=== PATIENT | male | born 1950 ===

== ENCOUNTER 2020-12-19 10:38 | Outpatient (REF) | payer BC, SELFPAY ==
[2020-12-19 14:38] LABS: MANUAL DIFF FLAG NO
[2020-12-19 14:46] LABS: Basophils Percent Auto 0.6 % (0-2); Eosinophils Absolute Auto 0.1 X10*3/uL (0.0-0.4); Eosinophils Percent Auto 2.6 % (0-4); Hematocrit 38.6 % (42-52); Hemoglobin 12.9 g/dl (14.0-18.0); Imm Gran Abs Auto 0.02 X10*3/uL (0.00-0.03); Imm Gran Pct Auto 0.4 % (0.0-0.4); Lymphocytes Absolute Auto 1.8 X10*3/uL (1.2-4.9); Lymphocytes Percent Auto 34.8 % (20-40); Mean Corpuscular HGB Conc 33.4 g/dl (31.0-36.0); Mean Corpuscular Hemoglobin 32.4 pg (27.0-33.0); Mean Platelet Volume 10.3 fL (9.4-12.4); Monocytes Absolute Auto 0.6 X10*3/uL (0.1-1.2); Monocytes Percent Auto 11.7 % (2-11); Neutrophils Absolute Auto 2.6 X10*3/uL (2.0-8.3); Neutrophils Percent Auto 49.9 % (45-73); Platelet Count 257 X10*3/uL (160-400); Red Blood Count 3.98 X10*6/uL (4.60-5.80); Red Cell Distribution Width 12.8 % (11.0-16.0); White Blood Count 5.3 X10*3/uL (4.8-10.8)
[2020-12-19 15:10] LABS: Alanine Aminotransferase 29 U/L (0-40); Albumin Level 4.5 g/dL (3.5-5.0); Alkaline Phosphatase 65 U/L (39-117); Anion Gap 12 (12-20); Aspartate Amino Transferase 29 U/L (5-37); Bilirubin Total 0.5 mg/dL (0.0-1.0); Blood Urea Nitrogen 22 mg/dL (9-16); Calcium 9.3 mg/dL (8.4-10.2); Carbon Dioxide 29 mmol/L (22-29); Chloride 106 mmol/L (96-108); Cholesterol 229 mg/dL; Estimated Glomerular Filt Rate > 60; Glucose Fasting 99 mg/dL (60-99); HDL Cholesterol 47 mg/dL; LDL Cholesterol Calculated 162 mg/dl; Potassium 4.6 mmol/L (3.3-5.1); Sodium 142 mmol/L (135-145); Triglycerides 104 mg/dL
[2020-12-19 15:31] LABS: Prostate Specific Antigen Scr 0.73 ng/mL (<0.05-4.0); Thyroid Stimulating Hormone 1.32 uIU/mL (0.32-4.0)
== END 2020-12-19 10:39 | disposition home or self-care (01) ==
LOC: HO.10HDL 10:38
PROVIDERS: Visit Provider Internal Medicine
DX: Z00.00 Encounter for general adult medical examination without abnormal findings (principal); Z12.5 Encounter for screening for malignant neoplasm of prostate; E11.9 Type 2 diabetes mellitus without complications; R35.1 Nocturia; E03.9 Hypothyroidism, unspecified
CPT/HCPCS: 36415; 80053; 80061; 84153; 84443; 85025

== ENCOUNTER 2021-12-26 10:48 | Outpatient (REF) | payer MEDICARE, SELFPAY ==
[2021-12-26 10:58] LABS: MANUAL DIFF FLAG NO
[2021-12-26 11:31] LABS: Basophils Percent Auto 0.5 % (0-2); Eosinophils Absolute Auto 0.1 X10*3/uL (0.0-0.4); Eosinophils Percent Auto 1.9 % (0-4); Hematocrit 41.9 % (42.0-52.0); Hemoglobin 13.9 g/dl (14.0-18.0); Imm Gran Abs Auto 0.02 X10*3/uL (0.00-0.03); Imm Gran Pct Auto 0.3 % (0.0-0.4); Mean Corpuscular HGB Conc 33.2 g/dl (31.0-36.0); Mean Corpuscular Hemoglobin 32.2 pg (27.0-33.0); Mean Platelet Volume 9.4 fL (9.4-12.4); Monocytes Absolute Auto 0.5 X10*3/uL (0.1-1.2); Monocytes Percent Auto 8.6 % (2-11); Neutrophils Absolute Auto 3.2 x10*3/uL (2.0-8.3); Neutrophils Percent Auto 54.7 % (45-73); Platelet Count 300 X10*3/uL (160-400); Red Blood Count 4.32 X10*6/uL (4.60-5.80); Red Cell Distribution Width 13.2 % (11.0-16.0); White Blood Count 5.8 X10*3/uL (4.8-10.8)
[2021-12-26 12:21] LABS: Alanine Aminotransferase 24 U/L (0-40); Albumin Level 4.5 g/dL (3.5-5.0); Alkaline Phosphatase 70 U/L (39-117); Anion Gap 12 (12-20); Aspartate Amino Transferase 24 U/L (5-37); Bilirubin Total 0.4 mg/dL (0.0-1.0); Blood Urea Nitrogen 20 mg/dL (9-16); Calcium 10.1 mg/dL (8.4-10.2); Carbon Dioxide 30 mmol/L (22-29); Chloride 107 mmol/L (96-108); Cholesterol 237 mg/dL; Estimated Glomerular Filt Rate > 60; Glucose Fasting 113 mg/dL (60-99); HDL Cholesterol 56 mg/dL; LDL Cholesterol Calculated 167 mg/dl; Potassium 5.2 mmol/L (3.3-5.1); Sodium 144 mmol/L (135-145); Total Protein 7.2 g/dL (6.5-8.0); Triglycerides 72 mg/dL
[2021-12-26 12:24] LABS: Thyroid Stimulating Hormone 0.92 uIU/mL (0.32-4.0)
== END 2021-12-26 10:49 | disposition home or self-care (01) ==
LOC: HO.LAB 10:48
PROVIDERS: PCP Internal Medicine; Visit Provider Internal Medicine
DX: Z00.00 Encounter for general adult medical examination without abnormal findings (principal); Z13.0 Encounter for screening for diseases of the blood and blood-forming organs and certain disorders involving the immune mechanism
CPT/HCPCS: 36415; 80053; 80061; 84443; 85025

== ENCOUNTER 2021-12-28 07:38 | Outpatient (REF) | payer MEDICARE, SELFPAY ==
--- NOTE | ~2021-12-28 | XR_ITS ---
EXAMINATION: XR KNEE, RIGHT XR KNEE BILATERAL STANDING CLINICAL INFORMATION: Right knee pain. COMPARISON: None TECHNIQUE: AP standing view of bilateral knees. Lateral and sunrise views of the right knee. FINDINGS: Right knee: Alignment is anatomic. Mild patellofemoral cartilage space loss with retropatellar osteophytes. Trace joint effusion. Quadriceps tendon enthesophyte. Left knee: Normal alignment and preserved joint spaces in the frontal projection. XR/XR knee RT 2V IMPRESSION: Mild patellofemoral osteoarthritis of the right knee.
--- NOTE | ~2021-12-28 | XR_ITS ---
EXAMINATION: XR KNEE, RIGHT XR KNEE BILATERAL STANDING CLINICAL INFORMATION: Right knee pain. COMPARISON: None TECHNIQUE: AP standing view of bilateral knees. Lateral and sunrise views of the right knee. FINDINGS: Right knee: Alignment is anatomic. Mild patellofemoral cartilage space loss with retropatellar osteophytes. Trace joint effusion. Quadriceps tendon enthesophyte. Left knee: Normal alignment and preserved joint spaces in the frontal projection. XR/XR knee standing BI IMPRESSION: Mild patellofemoral osteoarthritis of the right knee.
== END 2021-12-28 07:39 | disposition home or self-care (01) ==
LOC: HO.HOSX 07:38
PROVIDERS: Visit Provider Physician Assistant
DX: M22.41 Chondromalacia patellae, right knee (principal)
CPT/HCPCS: 73560; 73565; 99202

== ENCOUNTER 2022-12-30 10:04 | Outpatient (REF) | payer MEDICARE, SELFPAY ==
--- NOTE | ~2022-12-30 | XR_ITS ---
EXAMINATION: XR KNEE, RIGHT CLINICAL INFORMATION: Pain. COMPARISON: Radiographs dated 12/28/2021. TECHNIQUE: AP and lateral views of the right knee. FINDINGS: Bony alignment and mineralization are normal. The lateral and medial joint space compartments are well-maintained. There is moderate narrowing of the patellofemoral compartment, with small upper and lower articular surface peripheral osteophytes. An enthesophyte arises from the upper pole of the patella at the quadriceps tendon insertion. No fracture, dislocation or joint effusion is seen. There is no foreign body. XR/XR knee RT 2V IMPRESSION: 1. There is moderate osteoarthritic change of the right patellofemoral compartment. 2. No right knee fracture, dislocation or joint effusion is seen.
[2022-12-30 10:16] LABS: MANUAL DIFF FLAG NO
[2022-12-30 11:01] LABS: Basophils Percent Auto 0.5 % (0-2); Eosinophils Absolute Auto 0.1 X10*3/uL (0.0-0.4); Eosinophils Percent Auto 1.9 % (0-4); Hemoglobin 14.5 g/dl (14.0-18.0); Imm Gran Abs Auto 0.01 X10*3/uL (0.00-0.03); Imm Gran Pct Auto 0.2 % (0.0-0.4); Lymphocytes Absolute Auto 1.7 X10*3/uL (1.2-4.9); Lymphocytes Percent Auto 39.4 % (20-40); Mean Corpuscular HGB Conc 33.7 g/dl (31.0-36.0); Mean Corpuscular Hemoglobin 32.4 pg (27.0-33.0); Mean Corpuscular Volume 96.2 fL (80.0-98.0); Mean Platelet Volume 9.7 fL (9.4-12.4); Monocytes Absolute Auto 0.4 X10*3/uL (0.1-1.2); Monocytes Percent Auto 9.7 % (2-11); Neutrophils Absolute Auto 2.1 x10*3/uL (2.0-8.3); Neutrophils Percent Auto 48.3 % (45-73); Platelet Count 232 X10*3/uL (160-400); Red Blood Count 4.47 X10*6/uL (4.60-5.80); Red Cell Distribution Width 12.7 % (11.0-16.0); White Blood Count 4.3 X10*3/uL (4.8-10.8)
[2022-12-30 11:36] LABS: Alanine Aminotransferase 31 U/L (0-40); Albumin Level 4.6 g/dL (3.5-5.0); Alkaline Phosphatase 75 U/L (39-117); Anion Gap 12 (12-20); Aspartate Amino Transferase 28 U/L (5-37); Bilirubin Total 0.5 mg/dL (0.0-1.0); Blood Urea Nitrogen 23 mg/dL (9-16); Calcium 9.2 mg/dL (8.4-10.2); Carbon Dioxide 28 mmol/L (22-29); Chloride 108 mmol/L (96-108); Cholesterol 241 mg/dL; Estimated Glomerular Filt Rate > 60; Glucose Fasting 93 mg/dL (60-99); HDL Cholesterol 43 mg/dL; LDL Cholesterol Calculated 180 mg/dl; Potassium 4.5 mmol/L (3.3-5.1); Sodium 143 mmol/L (135-145); Total Protein 7.2 g/dL (6.5-8.0); Triglycerides 92 mg/dL
== END 2022-12-30 10:05 | disposition home or self-care (01) ==
LOC: HO.XRAY 10:04
PROVIDERS: PCP Internal Medicine; Visit Provider Internal Medicine
DX: N28.9 Disorder of kidney and ureter, unspecified (principal); D64.9 Anemia, unspecified; E78.5 Hyperlipidemia, unspecified; M25.561 Pain in right knee
CPT/HCPCS: 36415; 73560; 80053; 80061; 85025

== ENCOUNTER → 2023-01-03 15:28 | Outpatient (BNVA) | payer MEDICARE, SELFPAY | PROVIDERS: PCP Internal Medicine; Visit Provider Urology | DX: N52.9 Male erectile dysfunction, unspecified (principal) | CPT/HCPCS: 99202 ==

== ENCOUNTER → 2023-01-29 12:36 | Outpatient (BNVA) | payer MEDICARE, SELFPAY | PROVIDERS: PCP Internal Medicine; Visit Provider Physician Assistant | DX: M22.41 Chondromalacia patellae, right knee (principal) | CPT/HCPCS: 99212 ==

== ENCOUNTER → 2023-04-10 10:08 | Outpatient (BNVA) | payer MEDICARE, SELFPAY | PROVIDERS: PCP Internal Medicine; Visit Provider Urology | DX: N52.9 Male erectile dysfunction, unspecified (principal); R35.1 Nocturia; R39.12 Poor urinary stream | CPT/HCPCS: Q3014 ==

== ENCOUNTER 2023-07-09 10:46 | Outpatient (AMB) | payer MEDICARE, SELFPAY ==
--- NOTE | 2023-07-09 10:49 | A.OFFVIS_ITS ---
Intake Intake Visit Reasons: 3m follow up Intake Note: Patient is present for Follow Up Medication Urology Med: Last visit patient is no longer taking sildenafil. Currently on Tadalafil 5mg for BPH and sometimes 10mg(2 tabs) for erectile Dysfunction Antibiotic Allergy: None Blood Thinner: None Pharmacy: [facility] Medication Allergies No Known Allergies Allergy (Verified 07/09/23 10:54) Medication List - Last Reconciled 07/09/23 by Matthew Giron MD baclofen 20 mg PO BEDTIME clonazepam 1 mg PO BEDTIME PRN diclofenac-misoprostol 75-200 mg-mcg 1 tab PO BID gabapentin 600 mg PO DAILY latanoprost 0.005% 0 drps ophthalmic (eye) tadalafil 5 mg PO DAILY 90 days tadalafil 10 mg PO ONCE PRN 30 days tramadol 50 mg PO BID PRN 30 days HPI HPI Comments History of Present Illness Details Adria is a pleasant male. He is a patient Dr. Taylor. He is seen for the following urologic conditions - erectile dysfunction - lower urinary tract symptoms Six month follow-up Using 5 mg daily tadalafil 10 mg on demand Good response Continued improvement in urination May need alpha-adam in addition 6 month follow-up PSA Erectile dysfunction Current therapy 5 mg daily with 10 mg on demand tadalafil Initial evaluation - Progressive - Able to obtain but cannot maintain erection Concurrent diagnosis includes nocturia Medications include gabapentin, clonazepam Prior reasonable response to on demand sildenafil PFSH Medical History Spinal stenosis Surgical History History of colonoscopy H/O spinal fusion History of inguinal hernia repair Family History Father Tubular adenoma Mother Alzheimers disease Maternal Aunt Breast cancer Maternal Uncle Lung cancer Maternal Grandfather Lung cancer Brother No problems noted. Brother No problems noted. Sister No problems noted. Sister No problems noted. Daughter No problems noted. Daughter No problems noted. Daughter No problems noted. Social History Housing: Condominium Alcohol intake: current Alcohol intake frequency: a few times a week Patient Tobacco Use Status: Never used Tobacco e-Cigarette/Vaping Use: Never Used Second Hand Smoke Exposure: No service: No Current occupational status: employed Cognitive needs: No Hearing needs: No Vision needs: No Review of Systems Const Denies chills and Denies fever(s) Card Reports no additional complaints and Denies syncope Resp Denies cough GI Denies abdominal pain and Denies heartburn Reports as per HPI and Denies change in libido Neuro Denies syncope Psych Denies change in libido Endo Denies change in libido Physical Exam Const General: cooperative, healthy appearing, comfortable and no acute distress Orientation/consciousness: patient oriented x3 HEENT Face and sinus: Yes normal facial exam Mouth: moist mucous membranes Neck Neck: Yes normal visual inspection, Yes full ROM and Yes trachea midline Chest Chest palpation & inspection: normal inspection of the chest Resp Effort & Inspection: normal respiratory effort, able to speak in complete sentences and no respiratory distress GI Inspection: Yes normal to inspection Back/Spine/Pelvis Cervical Spine: normal cervical lordosis Thoracic/Lumbar Spine: thoracic and lumbar spine normal to inspection Skin General skin exam: no rashes or lesions noted Neuro General: patient oriented x3, gait normal, tone normal and moves all extremities Extrem General: Yes normal to inspection and Yes capillary refill normal Assessment & Plan Assessment & Plan (1) Weak urinary stream: Code(s): R39.12 - Poor urinary stream (2) Erectile dysfunction: Code(s): N52.9 - Male erectile dysfunction, unspecified (3) Nocturia more than twice per night: Code(s): R35.1 - Nocturia Plan Six month follow-up Orders: Orders Prostate Specific Antigen 6 Months R39.12 - Poor urinary stream Patient Instructions: Imaging studies, laboratory and physical exam results were discussed and reviewed in detail. No major barriers to patient understanding were identified. An opportunity to ask questions regarding the treatment plan was provided. All questions were answered. The patient expressed understanding and agreement with the above treatment plan. The patient is aware they should contact our office by phone for worsening of their current condition or the appearance of new urologic symptoms. Compliance is encouraged with any medications and followup testing that is ordered. It is a privilege to participate in the urologic care of your patient. If you have any questions or concerns regarding treatment for the above conditions, or other urologic issues, please do not hesitate to contact me. The office telephone contact is [phone]. This note is constructed using voice recognition software. While every effort has been made to ensure accuracy senior lead java developer errors may have been included. Yours sincerely, Dr Matthew Giron MD, [facility] - Urology Providers of Expert, Compassionate Care for the Genitourinary System Coding Level of Care Code Est Pt Level 3 (20620) Diagnoses Weak urinary stream R39.12 Erectile dysfunction N52.9 Nocturia more than twice per night R35.1
== END 2023-07-09 11:17 | disposition home or self-care (01) ==
PROVIDERS: PCP Internal Medicine; Visit Provider Urology
DX: R39.12 Poor urinary stream (principal); N52.9 Male erectile dysfunction, unspecified; R35.1 Nocturia
CPT/HCPCS: 99213

== ENCOUNTER → 2023-07-09 10:46 | Outpatient (BNVA) | payer MEDICARE, SELFPAY | PROVIDERS: PCP Internal Medicine; Visit Provider Urology | DX: R39.12 Poor urinary stream (principal); R35.1 Nocturia; N52.9 Male erectile dysfunction, unspecified | CPT/HCPCS: 99212 ==

== ENCOUNTER 2024-01-02 08:50 | Outpatient (AMB) | payer MEDICARE, SELFPAY ==
[2024-01-02 08:51] VITALS: BP 120/78; PULSE 50; O2SAT 100; BMI 25.4
--- NOTE | 2024-01-02 08:51 | A.OFFPC_ITS ---
Vital Signs 01/02/24 08:51 Height 5 ft 9 in Weight 172 lb BMI 25.4 BP 120/78 Blood Pressure Location Lt brachial Position Sitting Pulse 50 Pulse Source Pulse Oximeter Pulse Oximetry (%) 100 Oxygen Delivery Method Room Air Intake Visit Reasons: Annual exam Tempering Kiln Tender Required: No Senior Biostatistician/Group Leader: Not Required per policy Accompanied by: Self / Same As Patient Allergies No Known Allergies Allergy (Verified 01/02/24 08:52) Medication List - Last Reconciled 01/02/24 by Leo Wiley MD baclofen 20 mg PO BEDTIME clonazepam 1 mg PO BEDTIME PRN diclofenac-misoprostol 75-200 mg-mcg 1 tab PO BID gabapentin 600 mg PO DAILY latanoprost 0.005% 0 drps ophthalmic (eye) tadalafil 5 mg PO DAILY 90 days tadalafil 10 mg PO ONCE PRN 30 days tramadol 50 mg PO BID PRN 30 days Tobacco use date assessed: 01/02/24 Fall risk assessment: No Falls in past year Last assessed Fall Risk: 01/02/24 Dental Screening Dental Screen Date: 01/02/24 Did you have a dental visit in the last 12 months?: Yes Did you have a dental problem in the last 6 months where you did not have access to dental care?: No Was dental information given to patient?: Patient has dentist HPI Annual exam HPI Details chronic back pain; due for colonoscopy [facility] Medical History Spinal stenosis Surgical History History of colonoscopy H/O spinal fusion History of inguinal hernia repair Family History (Updated 01/02/24 @ 08:53 by MADISON Dominguez) Father Tubular adenoma Mother Alzheimers disease Maternal Aunt Breast cancer Maternal Uncle Lung cancer Maternal Grandfather Lung cancer Brother No problems noted. Brother No problems noted. Sister No problems noted. Sister No problems noted. Daughter No problems noted. Daughter No problems noted. Daughter No problems noted. Social History Housing: Condominium Alcohol intake: current Alcohol intake frequency: a few times a week Patient Tobacco Use Status: Never used Tobacco e-Cigarette/Vaping Use: Never Used Second Hand Smoke Exposure: No service: No Current occupational status: employed Cognitive needs: No Hearing needs: No Vision needs: Yes (glasses) Questionnaire PHQ-9 Over the last 2 weeks, how often have you been bothered by any of the following problems? 1. Little interest or pleasure in doing things: not at all 2. Feeling down, depressed, or hopeless: not at all 3. Trouble falling or staying asleep, or sleeping too much: not at all 4. Feeling tired or having little energy: not at all 5. Poor appetite or overeating: not at all 6. Feeling bad about yourself - or that you are a failure or have let yourself or your family down: not at all 7. Trouble concentrating on things, such as reading the newspaper or watching television: not at all 8. Moving or speaking so slowly that other people could have noticed. Or the opposite - being so fidgety or restless that you have been moving around a lot more than usual: not at all 9. Thoughts that you would be better off or of hurting yourself in some way: not at all Total score: 0 Depression Screening Interpretation: Negative Depression Screening Done: Yes 58608 - PHQ-9 Billing: Yes Source: Developed by Drs. Alvaro Gaitan, Shannan Jung, Edward Jett and colleagues, with an educational dania from [employer]. Thrive Questionnaire Date Thrive assessed: 01/02/24 I am a: Patient What is your living situation today?: I have a steady place to live Within the past 12 months, did the food you bought not last and you didn't have the money to get more?: Never true Within the past 12 months, did you worry whether your food would run out before you got money to buy more?: Never true Do you have trouble paying for medicines?: No Do you have trouble getting transportation to medical appointments?: No Do you have trouble paying your heating and electricity bill?: No Do you have trouble taking care of your child, family member or friend?: No Do you have trouble with day-to-day activities such as bathing, preparing meals, shopping, managing finances, etc.?: No Are you currently unemployed and looking for a job?: No Are you interested in more education?: No Please select the resources that you would like help with: None THRIVE Score: 0 AUDIT C Alcohol Use Questionnaire (AUDIT-C) 1. How often do you have a drink containing alcohol?: Monthly or less 2. How many drinks containing alcohol do you have on a typical day when you are drinking?: 1 or 2 3. How often do you have six or more drinks on one occasion?: Never Total Score: 1 Score Reviewed/Action Taken: Yes ANASTACIO-7 AMB Questionnaire ANASTACIO-7 Date ANASTACIO - 7 assessed: 01/02/24 Feeling nervous, anxious, or on edge: 0 = Not at all Not being able to stop or control worryin = Not at all Worrying too much about different things: 0 = Not at all Trouble relaxin = Not at all Being so restless that it is hard to sit still: 0 = Not at all Becoming easily annoyed or irritable: 0 = Not at all Feeling afraid as if something awful might happen: 0 = Not at all Total ANASTACIO-7 score (0-4 normal; 5-9 mild; 10-14 moderate; 15-21 severe): 0 Source: Developed by Drs. Alvaro Gaitan, Shannan Jung, Edward Jett and colleagues, with an educational dania from [employer]. ANASTACIO-7 Assessment Billing ANASTACIO-7 Assessment Tool: ANASTACIO-7 Assessment 09480 Review of Systems Const Denies chills, Denies fatigue, Denies headache(s) and Denies weight loss Eyes Denies change in vision, Denies diplopia and Denies eye pain ENT Denies vertigo, Denies dizziness, Denies headache(s) and Denies nasal discharge Card Denies chest pain, Denies rapid heart rate and Denies dyspnea on exertion Resp Denies chest congestion, Denies cough, Denies pain with cough and Denies dyspnea on exertion GI Denies abdominal pain, Denies hematochezia and Denies change in bowel habits Musc Denies myalgias, Denies arthralgias and Denies joint swelling Skin/Breast Denies lesions and Denies unusual bruising Neuro Denies vertigo, Denies dizziness, Denies headache(s) and Denies focal weakness Endo Denies fatigue Physical exam (Primary Care) Vital Signs: Last Vital Signs Pulse 50 01/02/24 08:51 BP 120/78 01/02/24 08:51 Pulse Ox 100 01/02/24 08:51 Oxygen Delivery Method Room Air 01/02/24 08:51 BMI result Body Mass Index 25.4 Tobacco/Smoking Status: Tobacco use Status Tobacco use date assessed 01/02/24 01/02/24 08:53 Patient Tobacco Use Status Never used Tobacco 01/02/24 08:53 e-Cigarette/Vaping Use Never Used 01/02/24 08:53 PHQ-9: PHQ-9 Score PHQ-9: Total score 0 01/02/24 08:53 Depression Screening Interpretation: Negative Thrive Assessment: Date of Thrive Assessment Date Thrive assessed 01/02/24 01/02/24 08:53 Const General: cooperative, healthy appearing and no acute distress Orientation/consciousness: oriented to person, oriented to place and oriented to time HENMT Head: Yes normal to inspection, Yes normocephalic and Yes atraumatic Mouth: Normal oral and palatal mucosa present and tongue normal Throat: Yes posterior oropharynx normal and Yes uvula midline Eyes General: appearance normal, both eyes and all related structures Neck Neck: Yes normal visual inspection, Yes full ROM and Yes no lymphadenopathy Thyroid: Thyroid normal Carotids: normal carotid upstroke Chest Chest palpation & inspection: normal inspection of the chest Resp Effort & Inspection: normal respiratory effort and able to speak in complete sentences Auscultation: clear to auscultation bilaterally Cardio Jugular venous distension: no JVD Palpation: normal PMI Rate: regular rate Rhythm: regular rhythm Heart sounds: S1 normal heart sound present and S2 normal heart sound present GI Inspection: Yes normal to inspection Palpation (GI): Soft to palpation and No hepatosplenomegaly present Auscultation: normal bowel sounds General: Yes no CVA tenderness Back/Spine/Pelvis Back: no CVA tenderness Skin General skin exam: no rashes or lesions noted Neuro General: oriented to person, oriented to place and oriented to time Extrem General: Yes normal to inspection and Yes full ROM Assessment and Plan Assessment & Plan (1) Physical exam: Code(s): Z00.00 - Encounter for general adult medical examination without abnormal findings Plan: stable; do labs (2) Spinal stenosis: Code(s): M48.00 - Spinal stenosis, site unspecified Plan: stable; same rx Orders: Orders Lipid Panel Today E78.5 - Hyperlipidemia, unspecified Complete Blood Count Auto Diff Today D64.9 - Anemia, unspecified Comprehensive Mobile. Panel Fast Today N28.9 - Disorder of kidney and ureter, unspecified Referrals Gastroenterology Referral Z12.11 - Encounter for screening for malignant neoplasm of colon Coding Level of Care Code Est Pt Prev Care >65y(45934) Diagnoses Physical exam Z00.00 Spinal stenosis M48.00 Additional Codes ANASTACIO-7 Assessment Billing - ANASTACIO-7 Assessment Tool: ANASTACIO-7 Assessment 60328 ([id number])
== END 2024-01-02 09:21 | disposition home or self-care (01) ==
PROVIDERS: Visit Provider Internal Medicine
DX: Z00.00 Encounter for general adult medical examination without abnormal findings (principal); M48.00 Spinal stenosis, site unspecified
CPT/HCPCS: 99397

== ENCOUNTER 2024-01-02 09:33 | Outpatient (REF) | payer MEDICARE, SELFPAY ==
[2024-01-02 13:30] LABS: Prostate Specific Antigen 0.64 ng/mL (<0.05-4.0)
== END 2024-01-02 09:34 | disposition home or self-care (01) ==
LOC: HO.10HDL 09:33
PROVIDERS: Visit Provider Urology
DX: Z12.5 Encounter for screening for malignant neoplasm of prostate (principal); R39.12 Poor urinary stream
CPT/HCPCS: 36415; 84153

== ENCOUNTER 2024-01-08 08:48 | Outpatient (AMB) | payer MEDICARE, SELFPAY ==
--- NOTE | 2024-01-08 08:48 | A.OFFVIS_ITS ---
Intake Intake Visit Reasons: 6M PSA(SET)Confirmed Intake Note: Patient presents today for a telehealth follow-up on PSA Meds- Tadalafil Allergies to Antibiotic- No Known Allergies Blood Thinner- None Denture Laboratory Technician Required: No Accompanied by: Self / Same As Patient Allergies No Known Allergies Allergy (Verified 01/08/24 08:49) Medication List - Last Reconciled 01/08/24 by Matthew Giron MD baclofen 20 mg PO BEDTIME clonazepam 1 mg PO BEDTIME PRN diclofenac-misoprostol 75-200 mg-mcg 1 tab PO BID gabapentin 600 mg PO DAILY latanoprost 0.005% 0 drps ophthalmic (eye) tadalafil 5 mg PO DAILY 90 days tadalafil 10 mg PO ONCE PRN 30 days tamsulosin 0.4 mg PO BEDTIME 30 days tramadol 50 mg PO BID PRN 30 days HPI HPI Comments History of Present Illness Details Adria is a pleasant male. He is a patient Dr. Taylor. He is seen for the following urologic conditions - erectile dysfunction - lower urinary tract symptoms Telemedicine Evaluation 15 min Consultation DoxURBANARA Sampson Video Six month follow-up Using 5 mg daily tadalafil 10 mg on demand Describing some weakness of stream would like to try alpha-adam. Tamsulosin provided. Two month follow-up tele Erectile dysfunction Current therapy 5 mg daily with 10 mg on demand tadalafil Initial evaluation - Progressive - Able to obtain but cannot maintain erection Concurrent diagnosis includes nocturia Medications include gabapentin, clonazepam Prior reasonable response to on demand sildenafil Lower urinary tract symptoms Initial symptoms include weakness of stream and frequency Good response to daily tadalafil PSA 01/17 0.6 PFSH Medical History Spinal stenosis Surgical History History of colonoscopy H/O spinal fusion History of inguinal hernia repair Family History Father Tubular adenoma Mother Alzheimers disease Maternal Aunt Breast cancer Maternal Uncle Lung cancer Maternal Grandfather Lung cancer Brother No problems noted. Brother No problems noted. Sister No problems noted. Sister No problems noted. Daughter No problems noted. Daughter No problems noted. Daughter No problems noted. Social History Housing: Condominium Alcohol intake: current Alcohol intake frequency: a few times a week Patient Tobacco Use Status: Never used Tobacco e-Cigarette/Vaping Use: Never Used Second Hand Smoke Exposure: No service: No Current occupational status: employed Cognitive needs: No Hearing needs: No Vision needs: Yes (glasses) Review of Systems Const All systems reviewed & are unremarkable except as noted in HPI and below Reports no additional complaints Resp Reports no additional complaints GI Reports no additional complaints Reports as per HPI Musc Reports no additional complaints Physical Exam Telemedicine evaluation Appropriate responses Regular breathing rate and rhythm HEENT Head: Yes normal to inspection Ears: hearing grossly normal bilaterally Eyes General: appearance normal, both eyes and all related structures Neck Neck: Yes normal visual inspection Chest Chest palpation & inspection: normal inspection of the chest Resp Effort & Inspection: normal respiratory effort and able to speak in complete sentences Assessment & Plan Assessment & Plan (1) Weak urinary stream: Code(s): R39.12 - Poor urinary stream (2) Erectile dysfunction: Code(s): N52.9 - Male erectile dysfunction, unspecified (3) Nocturia more than twice per night: Code(s): R35.1 - Nocturia Plan Trial tamsulosin Medications: New tamsulosin 0.4 mg PO BEDTIME 30 caps 1RF 30 days N40.1 - Benign prostatic hyperplasia with lower urinary tract symptoms, R35.1 - Nocturia Refilled tadalafil 5 mg PO DAILY 90 tabs 1RF sexual activity 90 days N52.9 - Male erectile dysfunction, unspecified tadalafil On demand medication take 60 minutes before intended activity 10 mg PO ONCE PRN 30 tabs 0RF sexual activity 30 days N52.9 - Male erectile dysfunction, unspecified Patient Instructions: Imaging studies, laboratory and physical exam results were discussed and reviewed in detail. No major barriers to patient understanding were identified. An opportunity to ask questions regarding the treatment plan was provided. All questions were answered. The patient expressed understanding and agreement with the above treatment plan. The patient is aware they should contact our office by phone for worsening of their current condition or the appearance of new urologic symptoms. Compliance is encouraged with any medications and followup testing that is ordered. It is a privilege to participate in the urologic care of your patient. If you have any questions or concerns regarding treatment for the above conditions, or other urologic issues, please do not hesitate to contact me. The office telephone contact is [phone]. This note is constructed using voice recognition software. While every effort has been made to ensure accuracy entry tech errors may have been included. Yours sincerely, Dr Matthew Giron MD, [facility] - Urology Providers of Expert, Compassionate Care for the Genitourinary System Telehealth Telehealth Location of provider rendering services: practice address Location of patient: address on file Patient Identification confirmed using: Name, : Yes Telehealth method: video Patient verbally consented to treatment: Yes Patient verbally consented to billing insurance company: Yes Patient informed of any privacy concerns related to visit: Yes Coding Level of Care Code Tele Est Pt Level 4 (89181) Diagnoses Weak urinary stream R39.12 Erectile dysfunction N52.9 Nocturia more than twice per night R35.1
== END 2024-01-08 09:38 | disposition home or self-care (01) ==
LOC: HO.HUSH 08:48
PROVIDERS: PCP Internal Medicine; Visit Provider Urology
DX: R39.12 Poor urinary stream (principal); N52.9 Male erectile dysfunction, unspecified; R35.1 Nocturia
CPT/HCPCS: 99214

== ENCOUNTER → 2024-01-08 08:48 | Outpatient (BNVA) | payer MEDICARE, SELFPAY | PROVIDERS: PCP Internal Medicine; Visit Provider Urology ==

== ENCOUNTER 2024-03-11 08:55 | Outpatient (AMB) | payer MEDICARE, SELFPAY ==
--- NOTE | 2024-03-11 08:57 | MHC.OFFVIS ---
Intake Visit Reasons: 2M Med Review(Tamsulosin) Intake Note: Patient is Present for Telephone Follow Up For Urology Med: Tamsulosin, Tadalafil Antibiotic Allergy:none Blood Thinner:None Allergies No Known Allergies Allergy (Verified 03/11/24 09:03) Medication List - Last Reconciled 03/11/24 by Matthew Giron MD baclofen 20 mg PO BEDTIME clonazepam 1 mg PO BEDTIME PRN diclofenac-misoprostol 75-200 mg-mcg 1 tab PO BID gabapentin 600 mg PO DAILY latanoprost 0.005% 0 drps ophthalmic (eye) tadalafil 5 mg PO DAILY 90 days tadalafil 10 mg PO ONCE PRN 30 days tamsulosin 0.4 mg PO BEDTIME 90 days tramadol 50 mg PO BID PRN 30 days HPI Comments Details: Adria is a pleasant male. He is a patient Dr. Taylor. He is seen for the following urologic conditions - erectile dysfunction - lower urinary tract symptoms Telemedicine Evaluation 15 min Consultation [employer] Sampson Video attempted Significant improvement with tamsulosin. Minimal nocturia now. Refill 90 days Continue tadalafil daily 5 mg with 10 mg on demand Six month follow-up Erectile dysfunction Current therapy 5 mg daily with 10 mg on demand tadalafil Initial evaluation - Progressive - Able to obtain but cannot maintain erection Concurrent diagnosis includes nocturia Medications include gabapentin, clonazepam Prior reasonable response to on demand sildenafil Lower urinary tract symptoms Initial symptoms include weakness of stream and frequency Good response to daily tadalafil PSA 01/17 0.6 PFSH Medical History Spinal stenosis Surgical History History of colonoscopy H/O spinal fusion History of inguinal hernia repair Family History Father Tubular adenoma Mother Alzheimers disease Maternal Aunt Breast cancer Maternal Uncle Lung cancer Maternal Grandfather Lung cancer Brother No problems noted. Brother No problems noted. Sister No problems noted. Sister No problems noted. Daughter No problems noted. Daughter No problems noted. Daughter No problems noted. Social History Housing: Condominium Alcohol intake: current Alcohol intake frequency: a few times a week Patient Tobacco Use Status: Never used Tobacco e-Cigarette/Vaping Use: Never Used Second Hand Smoke Exposure: No service: No Current occupational status: employed Cognitive needs: No Hearing needs: No Vision needs: Yes (glasses) Review of Systems Const All systems reviewed & are unremarkable except as noted in HPI and below Reports no additional complaints Resp Reports no additional complaints GI Reports no additional complaints Reports as per HPI Musc Reports no additional complaints Physical Exam Telemedicine evaluation Appropriate responses Regular breathing rate and rhythm HEENT Head: Yes normal to inspection Ears: hearing grossly normal bilaterally Eyes General: appearance normal, both eyes and all related structures Neck Neck: Yes normal visual inspection Chest Chest palpation & inspection: normal inspection of the chest Resp Effort & Inspection: normal respiratory effort and able to speak in complete sentences Telehealth Telehealth Telehealth Platform: [employer] Location of provider rendering services: practice address Location of patient: address on file Patient Identification confirmed using: Name, : Yes Telehealth method: video Patient verbally consented to treatment: Yes Patient verbally consented to billing insurance company: Yes Patient informed of any privacy concerns related to visit: Yes Minutes spent on Phone/Video with Pt.: 15 Assessment & Plan Assessment & Plan (1) Weak urinary stream: Code(s): R39.12 - Poor urinary stream Category: Medical (2) Erectile dysfunction: Code(s): N52.9 - Male erectile dysfunction, unspecified Category: Medical (3) Nocturia more than twice per night: Code(s): R35.1 - Nocturia Category: Medical Plan Six-month follow-up office Medications: Changed From tamsulosin 0.4 mg PO BEDTIME 30 days 30 caps 1RF N40.1 - Benign prostatic hyperplasia with lower urinary tract symptoms, R35.1 - Nocturia To tamsulosin 0.4 mg PO BEDTIME 90 caps 1RF 90 days N40.1 - Benign prostatic hyperplasia with lower urinary tract symptoms, R35.1 - Nocturia Patient Instructions: Imaging studies, laboratory and physical exam results were discussed and reviewed in detail. No major barriers to patient understanding were identified. An opportunity to ask questions regarding the treatment plan was provided. All questions were answered. The patient expressed understanding and agreement with the above treatment plan. The patient is aware they should contact our office by phone for worsening of their current condition or the appearance of new urologic symptoms. Compliance is encouraged with any medications and followup testing that is ordered. It is a privilege to participate in the urologic care of your patient. If you have any questions or concerns regarding treatment for the above conditions, or other urologic issues, please do not hesitate to contact me. The office telephone contact is [phone]. This note is constructed using voice recognition software. While every effort has been made to ensure accuracy manager trade marketing errors may have been included. Yours sincerely, Dr Matthew Giron MD, [facility] - Urology Providers of Expert, Compassionate Care for the Genitourinary System Coding Level of Care Code Tele Est Pt Level 3 (30382) Diagnoses Weak urinary stream R39.12 Erectile dysfunction N52.9 Nocturia more than twice per night R35.1
== END 2024-03-11 09:56 | disposition home or self-care (01) ==
LOC: HO.HUSH 08:55
PROVIDERS: PCP Internal Medicine; Visit Provider Urology
DX: R39.12 Poor urinary stream (principal); N52.9 Male erectile dysfunction, unspecified; R35.1 Nocturia
CPT/HCPCS: 99213

== ENCOUNTER → 2024-03-11 08:55 | Outpatient (BNVA) | payer MEDICARE, SELFPAY | PROVIDERS: PCP Internal Medicine; Visit Provider Urology ==

== ENCOUNTER 2024-09-10 14:08 | Outpatient (AMB) | payer MEDICARE, SELFPAY ==
--- NOTE | 2024-09-10 14:12 | A.OFFVIS_ITS ---
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 He is a patient Dr. Taylor. He is seen for the following urologic conditions - erectile dysfunction - lower urinary tract symptoms Telemedicine Evaluation 15 min Consultation [employer] Video attempted Six-month follow-up Significant improvement with tamsulosin. Minimal nocturia now. Refill 90 days Continue tadalafil daily 5 mg with 10 mg on demand Six month follow-up - office PVR Erectile dysfunction Current therapy 5 mg daily with 10 mg on demand tadalafil Initial evaluation - Progressive - Able to obtain but cannot maintain erection Concurrent diagnosis includes nocturia Medications include gabapentin, clonazepam Lower urinary tract symptoms Initial symptoms include weakness of stream and frequency Good response to daily tamsulosin Nocturia 1-2x PSA 01/17 0.6 PFSH Medical History (Updated 09/13/24 @ 06:52 by Consuelo Long RN) Bradycardia Duodenal ulcer GERD (gastroesophageal reflux disease) Gout Spinal stenosis Surgical History (Updated 09/13/24 @ 06:54 by Consuelo Long RN) History of skin surgery Hx of hand surgery History of colonoscopy H/O spinal fusion History of inguinal hernia repair Family History Father Tubular adenoma Mother Alzheimers disease Maternal Aunt Breast cancer Maternal Uncle Lung cancer Maternal Grandfather Lung cancer Brother No problems noted. Brother No problems noted. Sister No problems noted. Sister No problems noted. Daughter No problems noted. Daughter No problems noted. Daughter No problems noted. Social History Housing: Condominium Are you a primary point of care technician to a significant other at home: No Do you presently have visiting nurse or other home services: No Alcohol intake: current Alcohol intake frequency: a few times a month Patient Tobacco Use Status: Former Tobacco user Tobacco use type: Cigarette Years Smoked: 8 Smoked in Last 30 Days: No e-Cigarette/Vaping Use: Never Used Second Hand Smoke Exposure: No Use of substances other than those prescribed or required for medical reasons: Yes Substance Use Frequency: Occasionally Have you been hit, kicked, punched, or otherwise hurt by someone within the past year? If so, by whom?: No Are you DNR?: No Advance Directives: No Advance Directives Information Provided: Yes ( Mattie Qureshi [phone]) Advance Directives on File: No Recently lost weight without trying: No How much weight loss: Not applicable Eating poorly because of decreased appetite: No Nutrition screen score: 0 Nutrition Risks: No Nutritional Risk Poor oral hygiene: No service: No Current occupational status: employed Cognitive needs: No Hearing needs: No Vision needs: Yes (glasses) Review of Systems Const All systems reviewed & are unremarkable except as noted in HPI and below Reports no additional complaints Resp Reports no additional complaints GI Reports no additional complaints Reports as per HPI Musc Reports no additional complaints Physical Exam Telemedicine evaluation Appropriate responses Regular breathing rate and rhythm HEENT Head: Yes normal to inspection Ears: hearing grossly normal bilaterally Eyes General: appearance normal, both eyes and all related structures Neck Neck: Yes normal visual inspection Chest Chest palpation & inspection: normal inspection of the chest Resp Effort & Inspection: normal respiratory effort and able to speak in complete sentences Telehealth Telehealth Telehealth Platform: [employer] Location of provider rendering services: practice address Location of patient: address on file Patient Identification confirmed using: Name, : Yes Telehealth method: video Patient verbally consented to treatment: Yes Patient verbally consented to billing insurance company: Yes Patient informed of any privacy concerns related to visit: Yes Minutes spent on Phone/Video with Pt.: 15 Assessment & Plan Assessment & Plan (1) Nocturia more than twice per night: Code(s): R35.1 - Nocturia Category: Medical (2) Erectile dysfunction: Code(s): N52.9 - Male erectile dysfunction, unspecified Category: Medical (3) Weak urinary stream: Code(s): R39.12 - Poor urinary stream Category: Medical Plan Six-month follow-up office PVR Patient Instructions: Imaging studies, laboratory and physical exam results were discussed and reviewed in detail. No major barriers to patient understanding were identified. An opportunity to ask questions regarding the treatment plan was provided. All questions were answered. The patient expressed understanding and agreement with the above treatment plan. The patient is aware they should contact our office by phone for worsening of their current condition or the appearance of new urologic symptoms. Compliance is encouraged with any medications and followup testing that is ordered. It is a privilege to participate in the urologic care of your patient. If you shannon ve any questions or concerns regarding treatment for the above conditions, or other urologic issues, please do not hesitate to contact me. The office telephone contact is [phone]. This note is constructed using voice recognition software. While every effort has been made to ensure accuracy transcription coordinator errors may have been included. Yours sincerely, Dr Matthew Giron MD, [facility] - Urology Providers of Expert, Compassionate Care for the Genitourinary System Coding Level of Care Code Tele Est Pt Level 3 (11813) Diagnoses Nocturia more than twice per night R35.1 Erectile dysfunction N52.9 Weak urinary stream R39.12
== END 2024-09-10 15:03 | disposition home or self-care (01) ==
LOC: HO.HUSH 14:08
PROVIDERS: PCP Internal Medicine; Visit Provider Urology
DX: R35.1 Nocturia (principal); N52.9 Male erectile dysfunction, unspecified; R39.12 Poor urinary stream
CPT/HCPCS: 99213

== ENCOUNTER 2024-09-13 06:30 | Day surgery (SDC) | payer MEDICARE, SELFPAY ==
[2024-09-09 14:24] VITALS: BMI 27.9
--- NOTE | 2024-09-10 08:19 | P.CONAN_ITS ---
Documented by User: Mine Hernandez NP 09/10/24 08:20 HPI - Anesthesia Eval Consult details Narrative: 74yo M for Colonoscopy PMFSH Active Problems Active Problems: All Active Problems Weak urinary stream (Acute) Erectile dysfunction (Acute) Nocturia more than twice per night (Acute) Chondromalacia patellae of right knee (Acute) Physical exam (Acute) Spinal stenosis (Acute) Past Medical History Medical History (Updated 09/13/24 @ 06:52 by Consuelo Long RN) Bradycardia Duodenal ulcer GERD (gastroesophageal reflux disease) Gout Spinal stenosis Family History Family History Father Tubular adenoma Mother Alzheimers disease Maternal Aunt Breast cancer Maternal Uncle Lung cancer Maternal Grandfather Lung cancer Brother No problems noted. Brother No problems noted. Sister No problems noted. Sister No problems noted. Daughter No problems noted. Daughter No problems noted. Daughter No problems noted. Surgical History Surgical History (Updated 09/13/24 @ 06:54 by Consuelo Long RN) History of skin surgery Hx of hand surgery History of colonoscopy H/O spinal fusion History of inguinal hernia repair Social History Social History Housing: Condominium Are you a primary family day care provider to a significant other at home: No Do you presently have visiting nurse or other home services: No Alcohol intake: current Alcohol intake frequency: a few times a month Patient Tobacco Use Status: Former Tobacco user Tobacco use type: Cigarette Years Smoked: 8 Smoked in Last 30 Days: No e-Cigarette/Vaping Use: Never Used Second Hand Smoke Exposure: No Use of substances other than those prescribed or required for medical reasons: Yes Substance Use Frequency: Occasionally Have you been hit, kicked, punched, or otherwise hurt by someone within the past year? If so, by whom?: No Are you DNR?: No Advance Directives: No Advance Directives Information Provided: Yes ( Mattie Qureshi [phone]) Advance Directives on File: No Recently lost weight without trying: No How much weight loss: Not applicable Eating poorly because of decreased appetite: No Nutrition screen score: 0 Nutrition Risks: No Nutritional Risk Poor oral hygiene: No service: No Current occupational status: employed Cognitive needs: No Hearing needs: No Vision needs: Yes (glasses) Meds Allergies Allergy/AdvReac Type Severity Reaction Status Date / Time No Known Allergies Allergy Verified 09/13/24 06:53 Home Medications ?Medication ?Instructions ?Recorded ?Confirmed ?Last Taken ?Type baclofen 10 mg tablet 10 mg PO BEDTIME 12/19/20 09/13/24 Unknown History clonazepam 1 mg tablet 1 mg PO BEDTIME 12/19/20 09/13/24 Unknown History latanoprost 0.005 % eye drops 1 drp ophthalmic (eye) DAILY 12/30/22 09/13/24 Unknown History gabapentin 600 mg tablet 600 mg PO DAILY PRN Pain 01/29/23 09/13/24 Unknown History diclofenac 50 mg-misoprostol 200 1 tab PO BID 09/09/24 09/13/24 Unknown History mcg tablet,immed.and delayed release (Arthrotec) famotidine 20 mg tablet 20 mg PO BEDTIME PRN Acid Reflux 09/09/24 09/13/24 09/13/24 History multivitamin 1 tab PO DAILY 09/09/24 09/13/24 Unknown History omega 8-msv-bur-fish oil 1,200 mg 1 cap PO DAILY 09/09/24 09/13/24 09/06/24 History (144 mg-216 mg) capsule (Fish Oil) Exam Height,Weight and Vital Signs: Height 5 ft 7 in Weight 80.739 kg Assessment and Plan Assessment Anesthesia Assessment: Chart Reviewed Documented by User: Michael Bobo MD 09/13/24 08:04 [facility] Past Medical History Medical History (Updated 09/13/24 @ 06:52 by Consuelo Long RN) Bradycardia Duodenal ulcer GERD (gastroesophageal reflux disease) Gout Spinal stenosis Narrative: w /u for bradycardia, at least EKG, was negative, per patient. Family History Family History Father Tubular adenoma Mother Alzheimers disease Maternal Aunt Breast cancer Maternal Uncle Lung cancer Maternal Grandfather Lung cancer Brother No problems noted. Brother No problems noted. Sister No problems noted. Sister No problems noted. Daughter No problems noted. Daughter No problems noted. Daughter No problems noted. Family history of problems with anesthesia: No Surgical History Surgical History (Updated 09/13/24 @ 06:54 by Consuelo Long RN) History of skin surgery Hx of hand surgery History of colonoscopy H/O spinal fusion History of inguinal hernia repair History of Problems with Anesthesia: No Social History Social History [facility] Are you a primary family day care provider to a significant other at home: No Do you presently have visiting nurse or other home services: No Alcohol intake: current Alcohol intake frequency: a few times a month Patient Tobacco Use Status: Former Tobacco user Tobacco use type: Cigarette Years Smoked: 8 Smoked in Last 30 Days: No e-Cigarette/Vaping Use: Never Used Second Hand Smoke Exposure: No Use of substances other than those prescribed or required for medical reasons: Yes Substance Use Frequency: Occasionally Have you been hit, kicked, punched, or otherwise hurt by someone within the past year? If so, by whom?: No Are you DNR?: No Advance Directives: No Advance Directives Information Provided: Yes ( Mattie Qureshi [phone]) Advance Directives on File: No Recently lost weight without trying: No How much weight loss: Not applicable Eating poorly because of decreased appetite: No Nutrition screen score: 0 Nutrition Risks: No Nutritional Risk Poor oral hygiene: No service: No Current occupational status: employed Cognitive needs: No Hearing needs: No Vision needs: Yes (glasses) Meds Allergies Allergy/AdvReac Type Severity Reaction Status Date / Time No Known Allergies Allergy Verified 09/13/24 06:53 Home Medications ?Medication ?Instructions ?Recorded ?Confirmed ?Last Taken ?Type baclofen 10 mg tablet 10 mg PO BEDTIME 12/19/20 09/13/24 Unknown History clonazepam 1 mg tablet 1 mg PO BEDTIME 12/19/20 09/13/24 Unknown History latanoprost 0.005 % eye drops 1 drp ophthalmic (eye) DAILY 12/30/22 09/13/24 Unknown History gabapentin 600 mg tablet 600 mg PO DAILY PRN Pain 01/29/23 09/13/24 Unknown History diclofenac 50 mg-misoprostol 200 1 tab PO BID 09/09/24 09/13/24 Unknown History mcg tablet,immed.and delayed release (Arthrotec) famotidine 20 mg tablet 20 mg PO BEDTIME PRN Acid Reflux 09/09/24 09/13/24 09/13/24 History multivitamin 1 tab PO DAILY 09/09/24 09/13/24 Unknown History omega 6-egk-pmb-fish oil 1,200 mg 1 cap PO DAILY 09/09/24 09/13/24 09/06/24 History (144 mg-216 mg) capsule (Fish Oil) Exam Airway Mallampati Class: I TM Dist: >3cm Neck ROM: Full Loose/Missing/Broken Teeth: No Heart: ok Lungs: ok Assessment and Plan Assessment Anesthesia Assessment: Anesthesia Plan Discussed Final Anesthetic Review Family History of Problems with Anesthesia: No History of Problems with Anesthesia: No NPO: Yes ASA Class: II Final Preanesthetic Review: No Changes in Pt Med Stat, Meds/Allgs Chart Reviewed, Consent Obtained/Reviewed and Anes Risks/Benef Reviewed Patient Risk: Intermediate Procedure Risk: Low Anesthetic Plan Anesthetic Plan: MAC: and Agree w/ Assess. and Plan Disposition: Standard PACU
[2024-09-13 07:01] VITALS: BP 145/41; PULSE 54; RESP 16; TEMP 36.7; O2SAT 99; BMI 27.6
[2024-09-13] MEDS: Lactated Ringers 1,000 ML 100 ML IVCONT (07:10)
[2024-09-13 08:21] VITALS: BP 95/42; PULSE 56; RESP 16; TEMP 36.3; O2SAT 97
--- NOTE | 2024-09-13 08:24 | P.BOP_ITS ---
Brief Operative Note Date of Service: 09/13/24 Pre-op diagnosis: Screening Post-op diagnosis: other (Diverticulosis) Procedure: Colonoscopy to the cecum and TI Surgeon: Alvaro Tobar MD Anesthesia: MAC Was an Substation Electrician used for this Procedure?: No Estimated blood loss (mL): 0 Pathology: none sent Condition: stable Disposition: PACU
[2024-09-13 08:36] VITALS: BP 108/52; PULSE 61; RESP 16; TEMP 36.2; O2SAT 98
--- NOTE | 2024-09-13 08:37 | OP_ITS ---
DATE OF SERVICE: 09/13/2024 SURGEON: Alvaro Tobar MD INDICATIONS: The patient presents for evaluation of colorectal cancer screening. Full consent has been obtained from him for this, including risks of bleeding and perforation. PREOPERATIVE DIAGNOSIS: Colorectal cancer screening. POSTOPERATIVE DIAGNOSIS: PROCEDURE PERFORMED: Colonoscopy to cecum and terminal ileum. ESTIMATED BLOOD LOSS: COMPLICATIONS: ANESTHESIA: Monitored anesthesia care. ASSISTANTS: SPECIMENS: POSTOPERATIVE DIAGNOSES: Colorectal cancer screening, sigmoid diverticulosis, and internal hemorrhoids. DESCRIPTION OF PROCEDURE: The patient was placed in the left lateral decubitus position. The digital rectal exam revealed some external hemorrhoids. The Olympus video pediatric colonoscope was entered into the rectum and advanced easily to the cecum. Once in the cecum, I did identify normal-appearing cecal pouch with appendiceal orifice, a normal-appearing ileocecal valve. The terminal ileum was cannulated and appeared normal. Scope was withdrawn back in the colon. The entire cecum and ileocecal valve appeared normal. Scope was slowly withdrawn assessing all mucosal surfaces carefully. Preparation was excellent. I did not visualize any sign of polyps, colitis, nor angiodysplasia. There was a mild amount of sigmoid diverticulosis. In the rectum, scope was retroflexed visualizing internal hemorrhoids, but no other pathology. The rectal mucosa appeared normal. The scope was straightened and withdrawn from the patient. He tolerated the procedure well and was returned to recovery area in stable condition. IMPRESSION: 1. Diverticulosis. 2. Internal hemorrhoids. PLAN: Given today's negative exam, 2 previous negative colonoscopies, his age, and no family history of colon cancer, I do not think he needs any further screening colonoscopies. He will otherwise see me on a p.r.n. basis. MD ERICA Melendez/MANISHA / [id number]
== END 2024-09-13 08:53 | disposition home or self-care (01) ==
PROVIDERS: PCP Internal Medicine; Visit Provider Internal Medicine
PROC: 0DJD8ZZ Inspection of Lower Intestinal Tract, Via Natural or Artificial Opening Endoscopic (ICD-10-PCS; CPT 45378; principal; 2024-09-13 07:30)
DX: Z12.11 Encounter for screening for malignant neoplasm of colon (principal); K57.30 Diverticulosis of large intestine without perforation or abscess without bleeding; K64.8 Other hemorrhoids; K21.9 Gastro-esophageal reflux disease without esophagitis; M10.9 Gout, unspecified; Z87.11 Personal history of peptic ulcer disease; R00.1 Bradycardia, unspecified; Z79.899 Other long term (current) drug therapy; Z79.1 Long term (current) use of non-steroidal anti-inflammatories (NSAID); Z98.1 Arthrodesis status; Z98.890 Other specified postprocedural states; Z87.891 Personal history of nicotine dependence
CPT/HCPCS: G0121; J2003; J2704

== ENCOUNTER 2025-01-07 08:49 | Outpatient (REF) | payer MEDICARE, SELFPAY ==
[2025-01-07 09:37] LABS: MANUAL DIFF FLAG NO
[2025-01-07 10:28] LABS: Basophils Percent Auto 0.6 % (0-2); Eosinophils Absolute Auto 0.1 X10*3/uL (0.0-0.4); Eosinophils Percent Auto 2.7 % (0-4); Hemoglobin 12.9 g/dl (14.0-18.0); Imm Gran Abs Auto 0.01 X10*3/uL (0.00-0.03); Imm Gran Pct Auto 0.2 % (0.0-0.4); Lymphocytes Absolute Auto 1.9 X10*3/uL (1.2-4.9); Mean Corpuscular HGB Conc 33.9 g/dl (31.0-36.0); Mean Corpuscular Hemoglobin 32.9 pg (27.0-33.0); Mean Corpuscular Volume 96.9 fL (80.0-98.0); Mean Platelet Volume 9.7 fL (9.4-12.4); Monocytes Absolute Auto 0.5 X10*3/uL (0.1-1.2); Monocytes Percent Auto 9.8 % (2-11); Neutrophils Absolute Auto 2.5 x10*3/uL (2.0-8.3); Neutrophils Percent Auto 49.7 % (45-73); Platelet Count 244 X10*3/uL (160-400); Red Blood Count 3.92 X10*6/uL (4.60-5.80); Red Cell Distribution Width 13.1 % (11.0-16.0); White Blood Count 5.1 X10*3/uL (4.8-10.8)
[2025-01-07 11:18] LABS: Alanine Aminotransferase 31 U/L (0-40); Albumin Level 4.3 g/dL (3.5-5.0); Alkaline Phosphatase 62 U/L (39-117); Anion Gap 11 (12-20); Aspartate Amino Transferase 29 U/L (5-37); Bilirubin Total 0.6 mg/dL (0.0-1.0); Blood Urea Nitrogen 21 mg/dL (9-16); Calcium 9.3 mg/dL (8.4-10.2); Carbon Dioxide 28 mmol/L (22-29); Chloride 108 mmol/L (96-108); Cholesterol 217 mg/dL (<200); Estimated Glomerular Filt Rate > 60; Glucose Fasting 103 mg/dL (60-99); HDL Cholesterol 53 mg/dL (>40); LDL Cholesterol Calculated 149 mg/dL (<100); Potassium 4.3 mmol/L (3.3-5.1); Sodium 143 mmol/L (135-145); Thyroid Stimulating Hormone 1.68 uIU/mL (0.32-4.0); Total Protein 7.1 g/dL (6.5-8.0); Triglycerides 79 mg/dL (<150)
== END 2025-01-07 08:50 | disposition home or self-care (01) ==
LOC: HO.LAB 08:49
PROVIDERS: PCP Internal Medicine; Visit Provider Internal Medicine
DX: Z00.00 Encounter for general adult medical examination without abnormal findings (principal); M48.00 Spinal stenosis, site unspecified; Z13.29 Encounter for screening for other suspected endocrine disorder; Z13.9 Encounter for screening, unspecified; Z13.220 Encounter for screening for lipoid disorders; Z13.0 Encounter for screening for diseases of the blood and blood-forming organs and certain disorders involving the immune mechanism
CPT/HCPCS: 36415; 80053; 80061; 84443; 85025; 96127; 99397

== ENCOUNTER 2025-01-07 08:49 | Outpatient (AMB) | payer MEDICARE, SELFPAY ==
[2025-01-07 08:51] VITALS: BP 110/62; PULSE 48; O2SAT 94; BMI 27.8
--- NOTE | 2025-01-07 08:51 | MHC.PC.OV ---
Vital Signs 01/07/25 08:51 Height 5 ft 7 in Weight 177 lb 6 oz BMI 27.8 BP 110/62 Blood Pressure Location Lt brachial Position Sitting Pulse 48 L Pulse Source Pulse Oximeter Pulse Oximetry (%) 94 Oxygen Delivery Method Room Air Intake Visit Reasons: Annual Exam Public Health Administrator Required: No Accompanied by: Self / Same As Patient Allergies No Known Allergies Allergy (Verified 01/07/25 08:52) Medication List - Last Reconciled 01/07/25 by Leo Wiley MD baclofen 10 mg PO BEDTIME clonazepam 1 mg PO BEDTIME diclofenac-misoprostol 50-200 mg-mcg (Arthrotec) 1 tab PO BID famotidine 20 mg PO BEDTIME PRN gabapentin 600 mg PO DAILY PRN latanoprost 0.005% 1 drp ophthalmic (eye) DAILY multivitamin 1 tab PO DAILY omega 6-dmo-mqk-fish oil 1,200 (144-216) mg (Fish Oil) 1 cap PO DAILY tadalafil 10 mg PO ONCE PRN 30 days tadalafil 5 mg PO DAILY 90 days tamsulosin 0.4 mg PO BEDTIME 90 days tramadol 50 mg PO BID PRN 30 days Tobacco use date assessed: 01/07/25 Fall risk assessment: No Falls in past year Last assessed Fall Risk: 01/07/25 Dental Screening Dental Screen Date: 01/07/25 Did you have a dental visit in the last 12 months?: Yes Did you have a dental problem in the last 6 months where you did not have access to dental care?: No Was dental information given to patient?: Patient has dentist HPI Annual Exam HPI Details chronic back pain [facility] Medical History (Updated 09/13/24 @ 06:52 by Consuelo Long RN) Bradycardia Duodenal ulcer GERD (gastroesophageal reflux disease) Gout Spinal stenosis Surgical History History of skin surgery Hx of hand surgery History of colonoscopy H/O spinal fusion History of inguinal hernia repair Family History Father Tubular adenoma Mother Alzheimers disease Maternal Aunt Breast cancer Maternal Uncle Lung cancer Maternal Grandfather Lung cancer Brother No problems noted. Brother No problems noted. Sister No problems noted. Sister No problems noted. Daughter No problems noted. Daughter No problems noted. Daughter No problems noted. Social History Housing: Condominium Are you a primary respiratory care technician to a significant other at home: No Do you presently have visiting nurse or other home services: No Alcohol intake: current Alcohol intake frequency: a few times a month Patient Tobacco Use Status: Former Tobacco user Tobacco use type: Cigarette Years Smoked: 8 e-Cigarette/Vaping Use: Never Used Second Hand Smoke Exposure: No service: No Current occupational status: employed Cognitive needs: No Hearing needs: No Vision needs: Yes (glasses) Questionnaire PHQ-9 Over the last 2 weeks, how often have you been bothered by any of the following problems? 1. Little interest or pleasure in doing things: not at all 2. Feeling down, depressed, or hopeless: not at all 3. Trouble falling or staying asleep, or sleeping too much: several days 4. Feeling tired or having little energy: not at all 5. Poor appetite or overeating: not at all 6. Feeling bad about yourself - or that you are a failure or have let yourself or your family down: not at all 7. Trouble concentrating on things, such as reading the newspaper or watching television: several days 8. Moving or speaking so slowly that other people could have noticed. Or the opposite - being so fidgety or restless that you have been moving around a lot more than usual: not at all 9. Thoughts that you would be better off or of hurting yourself in some way: not at all Total score: 2 Source: Developed by Drs. Alvaro Gaitan, Shannan Jung, Edward Jett and colleagues, with an educational dania from [employer]. Thrive Questionnaire Date Thrive assessed: 01/07/25 I am a: Patient What is your living situation today?: I choose not to answer this question Within the past 12 months, did the food you bought not last and you didn't have the money to get more?: I choose not to answer this question Within the past 12 months, did you worry whether your food would run out before you got money to buy more?: I choose not to answer this question Do you have trouble paying for medicines?: I choose not to answer this question Do you have trouble getting transportation to medical appointments?: I choose not to answer this question Do you have trouble paying your heating and electricity bill?: I choose not to answer this question Do you have trouble taking care of your child, family member or friend?: I choose not to answer this question Do you have trouble with day-to-day activities such as bathing, preparing meals, shopping, managing finances, etc.?: I choose not to answer this question Are you currently unemployed and looking for a job?: I choose not to answer this question Are you interested in more education?: I choose not to answer this question Please select the resources that you would like help with: None Currently or been in a relationship where the following occur: I choose not to answer THRIVE Score: 0 AUDIT C Alcohol Use Questionnaire (AUDIT-C) 1. How often do you have a drink containing alcohol?: 2-4 times a month 2. How many drinks containing alcohol do you have on a typical day when you are drinking?: 1 or 2 3. How often do you have six or more drinks on one occasion?: Never Total Score: 2 ANASTACIO-7 AMB Questionnaire ANASTACIO-7 Date ANASTACIO - 7 assessed: 01/07/25 Feeling nervous, anxious, or on edge: 1 = Several days Not being able to stop or control worryin = Several days Worrying too much about different things: 1 = Several days Trouble relaxin = Several days Being so restless that it is hard to sit still: 1 = Several days Becoming easily annoyed or irritable: 1 = Several days Feeling afraid as if something awful might happen: 1 = Several days Total ANASTACIO-7 score (0-4 normal; 5-9 mild; 10-14 moderate; 15-21 severe): 7 Source: Developed by Drs. Alvaro Gaitan, Shannan Jung, Edward Jett and colleagues, with an educational dania from [employer]. Review of Systems Const Denies chills, Denies fatigue, Denies headache(s) and Denies weight loss Eyes Denies change in vision, Denies diplopia and Denies eye pain ENT Denies vertigo, Denies dizziness, Denies headache(s) and Denies nasal discharge Card Denies chest pain, Denies rapid heart rate and Denies dyspnea on exertion Resp Denies chest congestion, Denies cough, Denies pain with cough and Denies dyspnea on exertion GI Denies abdominal pain, Denies hematochezia and Denies change in bowel habits Musc Denies myalgias, Denies arthralgias and Denies joint swelling Skin/Breast Denies lesions and Denies unusual bruising Neuro Denies vertigo, Denies dizziness, Denies headache(s) and Denies focal weakness Endo Denies fatigue Physical exam (Primary Care) Vital Signs: Last Vital Signs Pulse 48 L 01/07/25 08:51 BP 110/62 01/07/25 08:51 Pulse Ox 94 01/07/25 08:51 Oxygen Delivery Method Room Air 01/07/25 08:51 BMI result Body Mass Index 27.8 Tobacco/Smoking Status: Tobacco use Status Tobacco use date assessed 01/07/25 01/07/25 08:55 Patient Tobacco Use Status Former Tobacco user 01/07/25 08:55 Tobacco use type Cigarette 01/07/25 08:55 e-Cigarette/Vaping Use Never Used 01/07/25 08:55 PHQ-9: PHQ-9 Score PHQ-9: Total score 2 01/07/25 08:55 Thrive Assessment: Date of Thrive Assessment Date Thrive assessed 01/07/25 01/07/25 08:55 Currently or been in a relationship where the following occur: I choose not to answer Const General: cooperative, healthy appearing and no acute distress Orientation/consciousness: oriented to person, oriented to place and oriented to time [facility] Head: Yes normal to inspection, Yes normocephalic and Yes atraumatic Mouth: Normal oral and palatal mucosa present and tongue normal Throat: Yes posterior oropharynx normal and Yes uvula midline Eyes General: appearance normal, both eyes and all related structures Neck Neck: Yes normal visual inspection, Yes full ROM and Yes no lymphadenopathy Thyroid: Thyroid normal Carotids: normal carotid upstroke Chest Chest palpation & inspection: normal inspection of the chest Resp Effort & Inspection: normal respiratory effort and able to speak in complete sentences Auscultation: clear to auscultation bilaterally Cardio Jugular venous distension: no JVD Palpation: normal PMI Rate: regular rate Rhythm: regular rhythm Heart sounds: S1 normal heart sound present and S2 normal heart sound present GI Inspection: Yes normal to inspection Palpation (GI): Soft to palpation and No hepatosplenomegaly present Auscultation: normal bowel sounds General: Yes no CVA tenderness Back/Spine/Pelvis Back: no CVA tenderness Skin General skin exam: no rashes or lesions noted Neuro General: oriented to person, oriented to place and oriented to time Extrem General: Yes normal to inspection and Yes full ROM Coding Level of Care Code Est Pt Prev Care >65y(23290) Diagnoses Physical exam Z00.00 Spinal stenosis M48.00 Assessment & Plan Assessment & Plan (1) Physical exam: Code(s): Z00.00 - Encounter for general adult medical examination without abnormal findings Category: Medical Plan: stable; do labs (2) Spinal stenosis: Code(s): M48.00 - Spinal stenosis, site unspecified Category: Medical Plan: stable; same rx Orders: Orders Thyroid Stimulating Hormone Today Z13.29 - Encounter for screening for other suspected endocrine disorder Lipid Panel Today Z13.220 - Encounter for screening for lipoid disorders Complete Blood Count Auto Diff Today Z13.0 - Encounter for screening for diseases of the blood and blood-forming organs and certain disorders involving the immune mechanism Comprehensive [place]. Panel Fast Today Z13.9 - Encounter for screening, unspecified
--- OUTSIDE RECORDS SUMMARY | 2025-01-07 09:08 | XMS_ITS | Patient Health Record ---
Author Organization [facility] Address [address] [place] [id number] Care Team Providers Care Hollow Ware Maker Name Role Phone Leo Wiley MD Primary Care Provider Alvaro Ramirez Unavailable [phone] Allergies No Known Allergies Reason For Referral No Information Medications Medication SIG (Take, Route, Fr equency, Duration) Notes Start Date End Date Status Tadalafil Active traMADol HCl 50 MG Oral for 30 PRN Active Pepcid 20 MG 1 tablet at bedtime as needed Orally Once a day for 30 day(s) Active clonazePAM 1 MG TAKE 1 TABLET BY DENIS TH EVERY DAY Oral for 90 Nightly Active Gabapentin 600 MG Oral for 90 PRN Active Multivitamin Active Baclofen 10 MG TAKE 1 TABLET BY DENIS TH EVERY DAY AT 7PM Oral for 90 PRN Active Arthrotec Active Fish Oil Active Flomax Active Xalatan Active Social History Tobacco Use: Social History Observation Description Date Details (start date - stop date) Never Smoker NA - NA Tobacco Use/Smoking Question Answer Notes Patient is a nonsmoker Alcohol Screen Question Answer Notes Did you have a drink contain ing alcohol in the past year? Yes How often did you have a dri nk containing alcohol in the past year? Monthly or less (1 point) How many drinks did you have on a typical day when you were drinking in the past year? 1 or 2 drinks (0 point) How often did you have 6 or more drinks on one occasion in the past year? Never (0 point) Points 1 Interpretation Negative Problems Problem Type SNOMED Code ICD Code Onset Dates Problem Status W/U Status Risk Notes Problem Colon cancer screening (047915396) Colon cancer screening (Z12.11) Active confirmed Problem Pre-procedure evaluation check (767561535) Encounter for other preprocedural examination (Z01.818) Active confirmed Problem Diverticular disease of colon (495887745) Diverticulosis of large intestine without perforation or abscess without bleeding (K57.30) Active confirmed Problem Non-steroidal anti-inflammator y agent (53016672) Encounter for long-term (current) use of NSAIDs (Z79.1) Active confirmed Vital Signs Blood pressure diastolic 00 mm Hg 04/27/2024 Height 5 ft 7 in in 04/27/2024 Blood pressure systolic 00 mm Hg 04/27/2024 Weight 178 lbs 04/27/2024 BMI 27.88 kg/m2 04/27/2024 Encounters Encounter Location Date Provider Diagnosis [facility] [place] [facility] [address] [place], [place] [id number] 09/13/2024 Alvaro Tobar Colon cancer screeni ng Z12.11 ; Diverticulosis of large intestine without perforation or abscess without bleeding K57.30 and Other hemorrhoids K64.8 [facility] [address] [facility] [address] [place] [address] 04/27/2024 Alvaro Tobar Colon cancer screeni ng Z12.11 ; Encounter for other preprocedural examination Z01.818 and Encounter for long-term (current) use of NSAIDs Z79.1 Assessments Encounter Date Diagnosis (ICD Code) Assessment Notes Treatment Notes Treatment Clinical Notes Section Notes 09/13/2024 Colon cancer screening (ICD-10 - Z12.11) 09/13/2024 Diverticulosis of large intestine without perforation or abscess without bleeding (ICD-10 - K57.30) 04/27/2024 Colon cancer screening (ICD-10 - Z12.11) Stop the Arthrotec, fish oil, and Turmeric for 1 week before the colonoscopy Overall, Megan appears quite well. I did recommend a followup colonoscopy for further screening purposes given his reported negative exam 10 years ago, his age, and excellent clinical appearance. We did review the rationale for this regard to colon cancer prevention. Full consent was obtained for this, including risks of bleeding and perforation. The procedure will be done with monitored anesthesia care. He was given the below instructions regarding adjustment of his medications for the procedure. Megan was comfortable with this plan. Thank you again for allowing me to participate in Megan's care. I shall continue to keep you advised of his progress. Her 04/27/2024 Encounter for other preprocedural examination (ICD-10 - Z01.818) Overall, Megan appears quite well. I did recommend a followup colonoscopy for further screening purposes given his reported negative exam 10 years ago, his age, and excellent clinical appearance. We did review the rationale for this regard to colon cancer prevention. Full consent was obtained for this, including risks of bleeding and perforation. The procedure will be done with monitored anesthesia care. He was given the below instructions regarding adjustment of his medications for the procedure. Megan was comfortable with this plan. Thank you again for allowing me to participate in Megan's care. I shall continue to keep you advised of his progress. Her 09/13/2024 Other hemorrhoids (ICD-10 - K64.8) 04/27/2024 Encounter for long-term (current) use of NSAIDs (ICD-10 - Z79.1) Overall, Megan appears quite well. I did recommend a followup colonoscopy for further screening purposes given his reported negative exam 10 years ago, his age, and excellent clinical appearance. We did review the rationale for this regard to colon cancer prevention. Full consent was obtained for this, including risks of bleeding and perforation. The procedure will be done with monitored anesthesia care. He was given the below instructions regarding adjustment of his medications for the procedure. Megan was comfortable with this plan. Thank you again for allowing me to participate in Megan's care. I shall continue to keep you advised of his progress. Her Plan Of Treatment Future Test Test Name Order Date COLONOSCOPY 04/27/2024 Insurance Providers Payer Name Payer Address Payer Phone Subscriber Number Group Number Insured Name Patient Relationship to Insured Coverage Start Date Coverage End Date [facility] [address] [place] [address] [phone] [id number] MEGAN PUGH Self - patient is the insured Medical (General) History Medical History History ICD Code Spinal stenosis-surgery as below Gout 2 negative screening colonos copies. Last one was [address] Summers at [facility] Denies [place],DM,CVA,Lung disease,renal dise ase Hx of some reflux and a duodenal ulcer m any years ago Surgical History Surgery Date(Month/Year) Spinal fusion L4-L5 Inguinal hernia repair x 2 Skin cancers Hand surgery
--- OUTSIDE RECORDS SUMMARY | 2025-01-07 09:09 | XMS_ITS | Continuity of Care Document ---
Author Organization [facility] Address [address] [place] [address] Care Team Providers Care Pulmonary Disease Specialist Name Role Phone JOSSUE DELACRUZ Referring Provider JOSSUE DELACRUZ Referring Provider JOSSUE DELACRUZ Primary Care Provider Assessment Encounter Date Assessment Date Assessment LastModified by Organization Details LastModified Time 12/21/2024 12/21/2024 IMPRESSION: episodic bilateral thigh and calf cramps, including the left anterior thigh which correlated with worsening left L3-4 foraminal stenosis August 2018 MRI L-spine, but not with EMG abnormality June 2018. Symptoms all occurring correlating with how vigorous his ambulation exercise has been that day. --MRI lumbar spine June 26, 2023: Unchanged (vs ) severe neuroforaminal narrowing at left L2-3, bilateral L3-4; L4-5 postsurgical changes -January 20, 2024 Resolution of left knee giving way, reduced frequency of left side tingling, continued lower extremity cramping, with upward fluctuation with robust physical exertion; current medications are adequate. --April 15, 2024 worsening cramping with exercise --December 21, 2024 [facility] neurosurgery not recommending surgical intervention; continued painful cramping at night after exercise, less during the winter? e xercising less. >>>>>>IMAGING MRI lumbar spine without contrast May 23, 2024, per dictation Dr. Strickland, neuroradiology [facility]: L3-L4 with bilateral severe neuroforaminal narrowing with probable bilateral L3 nerve root compression; also moderate canal stenosis and subarticular recess narrowing bilaterally with crowding of descending L4 nerve roots. Postoperative changes at the level degenerative changes are unchanged from previous, June 26, 2023 >>>>>>>>>>>>Februar 2024 He is trying to accept the situation of painful cramps with exercise. He has decided to accept the more conservative opinion of local neurosurgery that surgical intervention risk outweighs benefit, which is different from the [place] neurosurgery opinion? t aletheay offered surgery. This is detailed in HPI. He is thinking of going to the gym. He lifts weights, usually with upper body? w ithout arms above shoulders because of arthritis. I suggest he find a workplace trainer and assessor to help with gently strengthening his core. Usually the discs are thought of shock absorbers. However, stronger core muscles can be shock absorbers as well to reduce spine movement that might exacerbate his cramps. I cautioned him against too heavy weights. >>>>>>>>>>>>June 21, 2024 MRI L-spine April 2024 again shows severe bilateral neuroforaminal narrowing. There is no clear change from last year. There is some give at hip flexion when the patient is lying supine (no give when he is sitting). Hip adductor weakness, mild, that I had seen in March 2023 was not present when tested while sitting. I did not test this when he was lying supine. In any case, there is clear symptomatic change. He now has an MRI L-spine that is sufficiently Up To Date so that neurosurgery will see him. He is not completely convinced that he wants to proceed to surgery but he would like to talk this over with neurosurgery. We again agree on a referral to Dr. Lozano. >>>>>>>>>>>>April 15, 2024 I will refer him to neurosurgery, Dr. Lozano, for consideration of neurosurgical management for his worsening cramping. I believe his most recent MRI lumbar spine, June 26, 2023, is sufficiently recent. If I find that it does not, I will order another MRI lumbar spine. >>>>>>>>>>>>>>>>>[facility] 2023 Symptoms of presumptive transient left L3 radiculopathy are clearing. Decision against consulting neurosurgery seems a good one. He is happy with his current medication regimen. We will make no changes. >>>>>>>>>>>>2023 I reviewed June 26, 2023 MRI Lspine images online with the patient. I agree with the reading of neuroradiology. The numbness and the catches he feels when he bends his knee slightly so that his left leg feels it will give likely related to the quadriceps? t hey are known for such symptomatology, especially the vastus lateralis. The quadriceps are all innervated by L3 and L4 nerve roots. The severe left neuroforaminal narrowing at L3-4 may be responsible for this symptom, therefore. That narrowing seems t marked than the left-sided L2-3 narrowing that is also graded as severe by radiology. If that were to be involved with this symptom, it would be through L2 nerve root damage, for instance, the iliopsoas (L2-4 innervation). I think it likely that he did catch the L3 nerve root and injure it mildly. He was most bothersome symptom is that catching but he does not feel in danger of falling. It only happens a couple of times a week. It is not worsening. With unchanging severity of the foraminal narrowing overall, and with the relative mildness of the symptoms, I do not strongly feel that neurosurgery referral is indicated for consider of neurosurgical management. Neither does the patient. Therefore I do not think electrodiagnostic studies are indicated to look for objective evidence of the L3 nerve root being injured. He agrees also that we do not need electrodiagnostic studies. I suggest that he continue his relaxation exercise that he enjoys but conservatively? a s he already does. He feels the medication provided to help with cramping that relates to the vigor of his exercises appropriate. We will make no changes. >>>>>>>>>>>>January 08, 2023 Decision to start gabapentin He would like to try gabapentin 300-600 mg in the evening in place of the baclofen given the hung over affect he gets from baclofen. Gabapentin has helped his back spasm in the past when he took it from sports medicine. He now takes Ultram once or twice a day for his back pain from primary care. He does not remember any correlation between gabapentin and benefit for back spasm leg cramps/spasms previously but would like to try. We do this. I also renew the baclofen prescription in case the gabapentin does not work out. We discussed that gabapentin could add side effects of tiredness or loopiness even though he does not remember any such side effects and certainly no side effects as bad as those he attributes to baclofen. I especially warned about adding the gabapentin to the baclofen and suggested that he be careful? 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 We reviewed options when he was less satisfied, July 2019: We could increase clonazepam to 1.5 mg. This could cause more tiredness, however. Clonazepam as a tolerance character and even if it helped, we might end up chasing his cramps a few months later because of tolerance at the higher dose. Gabapentin has less benefit for cramps. He knows this as it has been tried by a previous provider and he found no good benefit. Botox could help for focal cramps but he has multifocal cramps and this would be harder to treat without using too much Botox. Levetiracetam may help with muscle spasm that has a brain etiology, especially if its myoclonic in nature. His cramps have a peripheral etiology in all probability, relating to lumbar stenosis so I am not confident that levetiracetam would help. He understood there was no ideal direction. At that time he chose to make no changes. His neurological exam reflects reduced reflexes but is otherwise unchanged with full strength. Knee reflexes are 1/trace vs prioe trace/trace as opposed to prior to 2019 11/27. Left sided ankle reflex is reduced from 1+ down to trace prior to 2018 but that reflex ascertainment is confounded by some pain at the Achilles tendon which relates to chronic injury. I am not aware of any S1 pathology. The pathology I aware of is in the L3-L4 region. To review: He notes that the baclofen actually worked better for his cramps than the Klonopin. However the unacceptable mental side effects makes Klonopin the better choice for him, with occasional lower dose baclofen for breakthrough cramps. His current regimen for cramps now enables him to pursue vigorous bike riding. He has stopped hiking but the mountain biking is enough for him at this point. I again encouraged him to be aware of boundaries on his vigorous activity, that sudden or heavy loads on his lower back could cause recurrence of his back/spine pathology. He understands. To review situation with leg cramps: With respect to his mid 2017 onset left-sided anterior thigh symptoms: Lumbar spine imaging reflects worsening left L3-L4 foraminal stenosis from protruding disc in the foramen which would affect the L3 nerve root. This correlates with his new onset left anterior thigh cramps with exercise. At that time exam was unchanged and benign and we decided against neurosurgical reconsultation relating to the worsening L3-L4 left disc protrusion. He has continued the path that we decided upon mid 2017 that he delegate physical labor such as refurbishing his deck to others to minimize chance of exacerbating lower back/lower extremity symptomatology. With respect to his old fluctuating posterior lower extremity symptoms: There is no abnormality to suggest new cause for fluctuating posterior thigh and calf symptoms which localized to the S1 myotome, and which correlated with 2018 electrodiagnostic results: right-sided S1 radiculopathy and likely left-sided S1 radiculopathy. The acute denervation plausibly related to continued healing since September 2017 surgery addressed compressive abnormality at L4-L5. Acute denervation can be seen up to 1 year after nerve injury. (In this region, there must have been central canal stenosis to affect S1; I do not have presurgery imaging) To review: He remembers cramping for one or 2 years leading to that surgery. His numbness and pain were resolved by the September 2017 surgery. There was no cramping for the 2 weeks after surgery but he attributes this to his lack of activity as cramping is always been activity related. There has been no sharp increase in cramping or new symptomatology to suggest reinjury. He decides not to pursue follow-up MRI lumbar spine at this time and I agree with this decision. His ankle reflex (S1) is more reduced on the right than on the left even though residual spasms are worse on the left. Exam sign correlates better with the electrodiagnostic asymmetry, worse on the right, then his cramping symptomatology. With respect to lab work: Blood work for possible causes of muscle spasm was done: calcium, phosphorus, magnesium, red blood cell magnesium, ferritin, TSH, free T4, PTH, vitamin D, testosterone. I only received PTH results which were normal. He has received the other results and saw no red flags. We will try to find the results but I will continue to defer to primary care. PLAN Adria Qureshi December 21, 2024 CONTINUE clonazepam 1 mg tablet tablets, 1 tablet, every 7 PM continue gabapentin 300 to 600 mg every evening, started December 2022, additionally for leg cramps, And/or, if leg cramps are intense: CONTINUE, additionally as needed: Baclofen 10 mg tablets, one half tablet-1 full tablet extra in the evening on days when cramping breaks through in the context of vigorous mountain biking exercise. Currently 15 nights out of month, usually ? ? ? tab, occasionally 1 tab, rarely 2 tabs. Follow-up in 8 months [email or web address] Not available 12/21/2024 09:07:10 Plan of Treatment Reminders Order Date Submit Date Provider Last Modified By Organization Details Last Modified Time Details Appointments FOLLOW UP EXT 2024 08:30A M Ryan Pagan MD PhD Not available Not available Not available Lab None recorded . Referral None recorded . Procedures None recorded . Surgeries None recorded . Imaging None recorded . Medication Orders None recorded . Patient TargetsNo targets recorded. Patient Instructions Encounter Date Encounter Id Patient Instructions Last Modified By Organization Details Last Modified Time 12/21/2024 [id number] June 18, 2023 He would like repeat MRI L-spine to see whether there has been worsening of the known left L3-4 foraminal stenosis or other changes that might sway him toward surgery. The diagnosis is obvious so I do not believe electrodiagnostic studies can offer anything more than looking for acute denervation that would make it more certain that there is ongoing injury to the muscles in the myotomal distribution of L3-4. He understands that he does not want electrodiagnostic studies at this point. He would like to continue the same medication regimen. >>>>>>>>>>>>>>>>> April 16, 2021: He has finished diagnostic investigation (with another HCP) of his lower back pain MRI and CT of his back has not shown any significant abnormality in his lower back where he has continuing pain. They have found ? s ome things higher up? but he has no pain higher up so there is no intervention planned. There is a screw around the site of his pain they did lidocaine injection via interventional radiology in the region of the screw. This did not help his back pain. He reports no new medical diagnoses. 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 Procedures Surgical History Date Name Laterality Status Provider Name and Address Organization Details Recorded Time 12/21/2024 DATA REVIEW completed Ryan Pagan MD [address] [facility] [place], [phone], [facility] 12/21/2024 08:35:57 06/21/2024 DATA REVIEW completed Ryan Pagan MD [address] [place] [address], [place], [phone], [facility] 06/21/2024 08:46:24 04/15/2024 DATA REVIEW completed Ryan Pagan MD [address] [place] [address], [place], [phone], [facility] 04/15/2024 10:19:54 01/20/2024 DATA REVIEW completed Ryan Pagan MD [address] [place] [address], [place], [phone], [facility] 01/20/2024 08:41:31 2023 DATA REVIEW completed Ryan Pagan MD [address] [place] [address], [place], [phone], [facility] 2023 12:49:33 06/18/2023 DATA REVIEW completed Ryan Pagan MD [address] [facility], [place], [phone], [facility] 06/18/2023 08:30:17 01/08/2023 DATA REVIEW completed Ryan Pagan MD [address] [place] [address], [place], [phone], [facility] 01/08/2023 08:31:00 08/13/2022 DATA REVIEW completed Ryan Pagan MD [address] [place] [address], [place], [phone], [facility] 08/13/2022 07:58:32 02/12/2022 DATA REVIEW completed Ryan Pagan MD [address] [place], [place] [address], [phone], [facility] 02/12/2022 08:27:33 09/17/2021 DATA REVIEW completed Ryan Pagan MD [address] [place] [address] [place], [phone], [facility] 09/17/2021 10:13:12 04/16/2021 DATA REVIEW completed Ryan Pagan MD [address] [place] [address] [place], [phone], [facility] 04/16/2021 10:04:45 Imaging Results None recorded. Procedure Notes None recorded. Medical Equipment None Reported. Medications Name Sig Start Date Stop Date Status Note LastModified by Organization Details LastModified Time diclofenac 75 mg-misoprosto l 200 mcg tablet,immedi ate,delayed release TAKE 1 TABLET BY MOUTH TWICE A DAY active Not Available Not Available No t Available amoxicillin 500 mg capsule TAKE 2 CAPSULES NOW THEN TAKE 1 CAPSULE 3 TIMES A DAY UNTIL FINISHED active Not Available Not Available No t Available latanoprost 0.005 % eye drops APPLY ONE DROP TO THE RIGHT EYE AT BEDTIME, 90 DAY SUPPLY active Not Available Not Available No t Available gabapentin 600 mg tablet TAKE 1/2 TO 1 TAB BY MOUTH EVERY EVENING FOR LEG CRAMPS active Not Available Not Available No t Available clonazepam 1 mg tablet TAKE 1 TABLET BY MOUTH EVERY DAY active Not Available Not Available No t Available tramadol 50 mg tablet TAKE 1 TABLET BY MOUTH TWICE A DAY NEEDED FOR PAIN active Not Available Not Available No t Available ketorolac 0.5 % eye drops INSTILL 1 DROP 3 TIMES A DAY IN OPERATIVE EYE STARTING AFTER SURGERY active Not Available Not Available No t Available tamsulosin 0.4 mg capsule TAKE 1 CAPSULE BY MOUTH EVERY DAY AT BEDTIME active Not Available Not Available N ot Available baclofen 10 mg tablet TAKE 1 TABLET BY MOUTH EVERY DAY AT 7PM active Not Available Not Available No t Available neomycin 3.5 mg/g-polymyxi n B 10,000 unit/g-dexame th 0.1 % eye oint APPLY TO RIGHT LOWER LID TWICE A DAY active Not Available Not Available No t Available chlorhexidine gluconate 0.12 % mouthwash RINSE 1/2 OZ BY MOUTH TWICE A DAY FOR 30 SECONDS THEN SPIT OUT active Not Available Not Available No t Available Vitals None Recorded Social History None recorded. Functional Status None recorded. Mental Status None recorded. Family History Nothing Reported. Medical History No medical history recorded. 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 Degenerati ve lumbar spinal stenosis 863865814 M48.061 Dystonia 40362984 G24.1 Health Concerns Section Related Observation LastModified by Organization Detai ls LastModified Time None Recorded Concern Status LastModified by Organization Details LastModified Time None Recorded Payers Encounter Date Sequence Insurance Name Policy Number Policy Terry Covered Member ID Terry Member ID Guarantor Name 12/21/2024 1 [facility]: MEDICARE PPO BLUE (MEDICARE REPLACEMENT PPO) [id number] Adria Qureshi [id number] Adria Qureshi Notes Date Note Type Note Provider Name and Address Organization Details Recorded Time 12/21/2024 text/html Follow up for painful muscle spasm in lower extremities residual from back pain going down left more than right leg, with intermittent numbness and frequent spasms, all partially improved with lower back surgery September 2017. He is unaccompanied.>>>>>> >>>>>>December 21, 2024Since June 21, 2024 Neurology follow-up encounter, he is doing okay, getting back. He has had [facility] neurosurgery consultation with Dr. Lozano. Neurosurgery opinion is that degenerative abnormality is not sufficiently severe to suggest that benefit for cramps with exercise symptomatology outweighs risks of surgery. Our patient notes that this is a different opinion that he received from a [place] neurosurgeon who thought that some intervention at L3-L4 and/or L4-L5 might help presenting symptomatology. Yet, our patient is happy that he has received an opinion from Dr. Lozano? h e can now understand that he does not have a dire situation. He will just have to accept that he is older and is not able to do what he used to be able to do? And get used to it. He continues on his baseline clonazepam 1 mg every 7 PM and gabapentin 300-600 mg every evening. He has not taken gabapentin in recent times as he has not been bike riding? i t is winter. Bike riding is his main exertional activity that causes breakthrough cramps waking him at night. He had a single cramp waking him at night just the other night when he went for a 1 hour walk. He walked it off and went back to sleep? w ithout a medication additionally.He has had no other new or changing medical issues or medications. >>>>>>>>>>>>June 21, 2024Since April 15, 2024 Neurology follow-up encounter, symptoms and their response to medication are all as they were in March. He has scheduled physical therapy, as insurance had requested. Nevertheless, insurance has approved MRI L-spine and that has been done, May 23, 2024. >>>>>>>>>>>>April 15, 2024Since January 20, 2024 Neurology follow-up encounter, his cramping has gotten worse. His left anterolateral thigh numbness has gotten worse. He has not changed his medication regimen, varying his gabapentin and baclofen depending on how much he needs it because of his lower extremity cramping. He reiterates how much he hates the baclofen because it makes him feel stupid, but that he takes it because it works so well for the cramping.Because of his worsening symptoms, he has reconsidered his decision against surgery that he made with me late 2022 after transient symptoms, likely relating to transient L3 nerve root entrapment. He has consulted with Dr. Lozano at [facility] in the past and he would like to see what Dr. Lozano thinks of his MRI in relationship to his worsening symptoms. He is interested in surgery if there is a chance that surgery might relieve him of his continual cramping related to exercise that he loves.He notes previous back surgery in 2018 at [facility]. >>>>>>>>>>>>>>>>>Mar 2023Since 2023 neurology follow-up encounter, he is doing pretty good. 1 mg 7 PM and gabapentin 300 mg every evening has kept his lower extremity cramping mostly under control. There have been rare exceptions, such as over the past 2 weeks, he has had more cramping which he attributes to cleaning up and painting after some other folks did some infrastructure repairs to his house. He has taken a full 600 mg of gabapentin some of the time because of this, and has taken the baclofen a few times as well, 5 mg. He reiterates that the baclofen is the medication of last resort as it makes him feel significantly spacey the next morning. He usually only takes 5 mg - 1/2 tablet of the baclofen but over the past 2 weeks he has even taking 10 mg because of the increased cramping.The numbness/tingling in his left side has continued intermittently but less frequently. There has been no progression. There has been no weakness or feeling of losing muscle mass in his left side as he has done in previous years in his right lower extremity. He has had no giving way of the left knee as he had in February 2023. He continues to have occasional giving way of the right knee which is chronic from remote radiculopathy affecting his right lower extremity.He continues to bike ride all winter although at a reduced frequency just twice per week. He will be ramping up soon, both on the roads and, when it is sufficiently dry, on the trails.Medication changes by other healthcare providers include addition of Flomax for bladder dyscontrol. He continues on Cialis, but not for bladder control, only for as needed sexual relations. He has had no other medication changes or new or changing medical issues. >>>>>>>>>>>>>>>>> August 21, 2023Since June 18, 2023 neurology follow-up encounter, he is doing about the same. The symptoms that newly bothered him prior to June 26 have been unchanged, intermittent numbness or tingling on the top of his left thigh and intermittent giving way of his left leg with a slight knee bend, either while standing or while walking. This happens only two or three times a week. It never catches him off guard so he feels in danger of falling? h e has not fallen or stumbled. He continues to find the gabapentin and clonazepam and baclofen sufficient for his spasm symptoms. The side effects of clonazepam limiting his dose of that continue unchanged. >>>>>>>>>>>>>>>>> June 18, 2023Since January 08, 2023 neurology follow-up encounter, he he has had some new intermittent numbness on the left anterolateral thigh. He has continued his recreational exercise but he is predominantly riding his bicycle. This is because he cannot walk more than ~1 mile before his back pain gets intolerable.He has tried the gabapentin 600 mg before bedtime for leg cramps in place of the baclofen 10 mg tablets one half or one full tablet. He has no side effects to the gabapentin as opposed to the groggy feeling in the morning from the baclofen, mild and a half a tablet, less mild and a full tablet. The gabapentin 600 mg works less well for his cramps even then the 1/2 tablet of baclofen. However, because of that baclofen side effect, he tends to take the gabapentin unless the cramps are more prominent than usual. He sometimes takes a full tablet. He does not mention that he ever takes 1.5 baclofen tablets. He continues on the clonazepam 1 mg every evening as baseline. Helped his leg cramps.He reports no other medication changes or new/changing medical conditions. >>>>>>>>>>>>>>>>>Mar 2022Since August 13, 2022 neurology follow-up encounter, he has continued his leisure time exercise activity although a little bit less through the winter. Much of the exercise has been on the stationary bike. Is taking less baclofen, both because of the reduced exercise and because of the dulling of his mind the next morning, the hung over feeling, caused by the baclofen. He has had no baclofen over the last week and in general takes no baclofen ~50% of the days in recent months. When he does take his evening baclofen, it generally ranges 0.5 mg up to 1.5 mg. 1.5 baclofen dose remains rare because of its association with significant hung over affect. He can still feel the abnormality the next morning with the lower doses. Has had to take more diclofenac rarely, once, 2.5 tablets when he over exercised? d oing sit ups for the first time in a long time. Another time he had to take a larger dose of baclofen when he was recreating with his friends and had one or two drinks he reiterates that alcohol worsens the cramping. He continues his daily clonazepam 1 mg at 7 PM.He has some new bladder hesitancy for which he consulted with urology. He had been on sildenafil for erection but urology changed this to tadalafil just last week and told him to take it daily? i t can serve a dual function of reducing hesitancy while still helping erection. He has somewhat worsened right knee pain for which she has had x-rays and has pending orthopedic other medications remain the same including on Arthrotec for finger arthritis 1 tablet twice a day, waking only infrequently with finger pain. Continues on Ultram once or twice a day from primary care for back pain. As mentioned that back pain seems to make leg spasms more likely.He has a surgeon in [place] for his back who sends him a questionnaire once a year. He is not ready for surgery, he states. >>>>>>>>>>>>>>>>>Oct good 2021:Since February 12, 2022 neurology follow-up encounter, he is maintaining his status quo with respect to the tension between his habit for regular exercise and lower extremity cramping that increases with increasing robust exercise. On the other hand, he also says at another point that he thinks he is slowly worsening. He continues to bike ride regularly. He hikes less frequently but still hikes up to 2 miles, rarely 3 miles. He continues to do tasks around the house. He occasionally overextends himself and pays with worse cramping. He has not noticed any weakness.He continues to take clonazepam for the cramping, 1 mg every 7 PM. He takes baclofen 10 mg tablets only for of 7 days on average, trying to stay away from it. When he takes accident it is either I half tablet, I half tablet with a second half tablet later, or a full tablet with early emerging of cramping after robust exercise. He has said that more than one serving of beer or wine increases the likelihood of cramping, but only if he has exercised earlier in the day. Rarely he will take 1.5 tablets of baclofen? t hat is when he has a hung over feeling in the morning which she tries to avoid.He remains on Arthrotec for rheumatology for finger arthritis, a steady 1 tablet twice a day. With this he only infrequently wakes with finger pain. Most of his waking relates to going to the bathroom. He continues to take Ultram once or twice a day from primary care for back pain. He has noted that although it helps back pain it seems to make cramps in his legs more likely.He has a surgeon in [place] for his back who sends him a questionnaire once a year. He is not ready for surgery, he states. He has started Xalatan right side eyedrops for glaucoma. Otherwise, He reports no new medications or medical diagnoses. Presenting symptomatology is reviewed from June 30, 2018 initial neurology consultation: In approximately 2012, about 5 years ago, he had onset of lower back pain going down to his lower extremities with numbness and spasms, starting for no apparent reason. It slowly worsened. He sought chiropractic intervention. This helped little if any. Finally, he had consultation for the consideration of surgical intervention and surgery was performed September 2017. Numbness that had intermittently gone down the sides of her thighs, calves and intermittently to the tops of feet resolved completely. Back pain going down lower extremities resolved about 50%. Back pain is now less frequent and less intense: tolerable. Dgex-lau-algctwl analgesics suffice for this back pain currently while he had turned to prescription medication before his surgery. Spasms in his lower extremities have persisted and bother him more than other pre-existing symptoms. They are more frequent if not more intense on the left. On the one hand, spasms on his anterior legs resolved completely after the surgery. On the other hand, spasms at the back of his legs, his posterior calves, did not improve much if at all. Spasms at the back of his thighs likewise did not improve significantly. The spasms happen dependably if he is on his feet exercising his lower extremities vigorously on a particular day. They are exacerbated if he has a beer or 2. They emerge in the evening. They are most bothersome waking him at night. Sometimes he is awake 4 hours because he cannot go back to bed and lie down without intolerable spasm. Ryan Pagan MD [address] [place] [address] [place], [phone], [facility] 12/21/2024 09:07:23
--- OUTSIDE RECORDS SUMMARY | 2025-01-07 09:09 | XMS_ITS ---
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 Name Role Phone Leo Wiley MD Primary Care Provider Alvaro Ramirez Unavailable [phone] Allergies No Known Allergies REASON FOR VISIT Patient presents today for a COLON SCREENING Medications Medication SIG (Take, Route, Fr equency, Duration) Notes Start Date End Date Status traMADol HCl 50 MG Oral for 30 PRN Active Pepcid 20 MG 1 tablet at bedtime as needed Orally Once a day for 30 day(s) Active clonazePAM 1 MG TAKE 1 TABLET BY DENIS TH EVERY DAY Oral for 90 Nightly Active Gabapentin 600 MG Oral for 90 PRN Active Baclofen 10 MG TAKE 1 TABLET BY DENIS TH EVERY DAY AT 7PM Oral for 90 PRN Active Tadalafil Active Arthrotec Active Fish Oil Active Flomax Active Xalatan Active Multivitamin Active Social History Tobacco Use: Social History [...] Status Risk Notes Problem Colon cancer screening (896534772) Colon cancer screening (Z12.11) Active confirmed Problem Pre-procedure evaluation check (159965031) Encounter for other preprocedural examination (Z01.818) Active confirmed Problem Non-steroidal anti-inflammat ory agent (57949697) Encounter for long-term (current) use of NSAIDs (Z79.1) Active confirmed Vital Signs Blood pressure systolic 00 mm Hg 04/27/20 24 Blood pressure diastolic 00 mm Hg 024 Height 5 ft 7 in in 04/27/2024 Weight 178 lbs 04/27/2024 BMI 27.88 kg/m2 04/27/2024 Encounters Encounter Location Date Provider Diagnosis [facility] [address] [place] [address] 04/27/2024 Alvaro Tobar Colon cancer screeni ng Z12.11 ; Encounter for other preprocedural examination Z01.818 and Encounter for long-term (current) use of NSAIDs Z79.1 Assessments Encounter Date Diagnosis (ICD Code) Assessment Notes Treatment Notes Treatment Clinical Notes Section Notes 04/27/2024 Colon cancer screening (ICD-10 - Z12.11) [...] of his progress. Her 04/27/2024 Encounter for long-term (current) use of [...] of his progress. Her Plan Of Treatment Treatment Notes Assessment Notes Colon cancer screening Stop the Arthrote c, fish oil, and Turmeric for 1 week before the colonoscopy Future Test Test Name Order Date COLONOSCOPY 04/27/2024 Next Appt Details Follow Up: prn, Reason: Progress Notes * MEGAN PUGHDOB:1950 ( 73 yo M)Acc No.[id number]:04/27/2024 Progress Notes Patient:?MEGAN PUGH Provider:?Alvaro Tobar MD :1950???Age:73 Y???Sex:Male Sky e:04/27/2024 Address:[address] [place] [address] Pcp:Leo Wiley MD Subjective: * Chief Complaints: * ???Patient presents today fo r a COLON SCREENING * HPI: ???incontinence:? I saw Megan in the office today for evaluation of colorectal cancer screening. ?As you know, Megan is a 73-year-old male who feels well from a GI standpoint. He describes a good appetite, without any significant heartburn or dysphagia. He does take a daily Pepcid in relation to some reflux and a distant history of ulcer disease. He denies any abdominal pain, jaundice, unintentional weight loss, change in bowel habits, hematochezia, or melena. He describes his bowel movements are fairly regular. He denies any known family history of colon cancer. Megan has had 2 previously negative colonoscopies with the most recent one being [address] Summers at [facility]. ?Laboratories in January revealed a normal CBC, normal chemistries, and normal LFTs. * ROS:?General/Constitutional:?Change in appetite?denies.?Chills?denies.?Fatigue?denies.?Ophthalmologic:?Comments?all negative.?ENT:?Comments?all negative.?Respiratory:?hemoptysis?denies.?Cough?denies.?Cardiovascular:?Chest pain?denies.?Orthopnea?denies.?Gastrointestinal:?Comments?See HPI for details.?Genitourinary:?Hematuria?denies.?Dysuria?denies.?Musculoskeletal:?Painful joints?Back pain.?Weakness?denies.?Skin:?Itching?denies.?Rash?denies.?Neurologic:?Headache?denies.?Seizures?denies.?Psychiatric:?Comments?all negative.? * Medical History:? * Surgical History:?Spinal fus ion L4-L5 Inguinal hernia repair x 2 Skin cancers Hand surgery * Hospitalization/Major Diagno stic Procedure:?No Hospitalization History. * Family History:?Father: dece ased 93 yrs, diagnosed with Colon polyps.?Mother: , alzheimer's dementia.? no known hx of colon cancer. * Social History:?Tobacco Use:?Tobacco Use/Smoking?Patient is a?nonsmoker.?Drugs/Alcohol:?Alcohol Screen?Did you have a drink containing alcohol in the past year??Yes,?How often did you have a drink containing alcohol in the past year??Monthly or less (1 point), How many drinks did you have on a typical day when you were drinking in the past year??1 or 2 drinks (0 point),?How often did you have 6 or more drinks on one occasion in the past year??Never (0 point),?Points?1,?Interpretation?Negative.?Miscellaneous:?Marital status: . Occupation: retired. * Medications:?TakingMultivita min Fish Oil Arthrotec Xalatan Flomax Tadalafil Pepcid 20 MG Tablet 1 tablet at bedtime as needed Orally Once a daytraMADol HCl 50 MG Tablet Oral , Notes: PRNGabapentin 600 MG Tablet Oral , Notes: PRNclonazePAM 1 MG Tablet TAKE 1 TABLET BY MOUTH EVERY DAY Oral , Notes: NightlyBaclofen 10 MG Tablet TAKE 1 TABLET BY MOUTH EVERY DAY AT 7PM Oral , Notes: PRNMedication List reviewed and reconciled with the patientTaking Multivitamin Taking Fish Oil Taking Arthrotec Taking Xalatan Taking Flomax Taking Tadalafil Taking Pepcid 20 MG Tablet 1 tablet at bedtime as needed Orally Once a dayTaking traMADol HCl 50 MG Tablet Oral , Notes: PRNTaking Gabapentin 600 MG Tablet Oral , Notes: PRNTaking clonazePAM 1 MG Tablet TAKE 1 TABLET BY MOUTH EVERY DAY Oral , Notes: NightlyTaking Baclofen 10 MG Tablet TAKE 1 TABLET BY MOUTH EVERY DAY AT 7PM Oral , Notes: PRNMedication List reviewed and reconciled with the patient * Allergies:?N.K.D.A.yes[Aller gies Verified] Objective: * Vitals:?Wt: 178 lbs, Ht: 5 f t 7 in, BMI:27.88 Index, BP: 00/00 mm Hg. * Examination: ???General Examination: ?GENERAL APPEARANCE:?pleasant, well nourished, well developed, in no acute distress.?EYES:?sclera non-icteric.?ORAL CAVITY:?mucosa moist.?NECK/THYROID:?no cervical lymphadenopathy, neck supple.?SKIN:?nonjaundiced, no spider angiomata.?HEART:?S1, S2 normal.?LUNGS:?clear to auscultation bilaterally.?ABDOMEN:?normal bowel sounds, no guarding or rigidity, no guarding or rigidity, no masses palpable, soft, nontender, nondistended.?EXTREMITIES:?no edema.?NEUROLOGIC:?alert and oriented.? Assessment: * Assessment: 1.?Encounter for other prepr ocedural examination - Z01.818 (Primary)?2.?Colon cancer screening - Z12.11?3.?Encounter for long-term (current) use of NSAIDs - Z79.1? Overall, Megan appears quite well. I did [...] to keep you advised of his progress. Her. Plan: * Treatment: 2.?Colon cancer screening?Procedure: COLONOSCOPY (Ordered for 04/27/2024)* with MACsched for 09/13/24 a t 7:30 ammiralax Notes: Stop the Arthrotec, fish oil, and Turmeric for 1 week before the colonoscopy?? * Procedure Codes:?3017F COLOR ECTAL CA SCREEN DOC [id number] TOBACCO [id number] BP SCR NOT PRFRM REC REASON NOS * Preventive Medicine:? ??Counseling:?Care goal follow-up plan:?Above Normal BMI Follow-up?Giving encouragement to exercise,?BMI management provided?Yes.? * Follow Up:?prn * * Sign off status: Completed true * Provider:?Alvaro Tobar MD Date:? 024 Generated for Tomy lai/Woody/Garcia on:?01/07/2025 09:08 AM EDT History and Physical Notes * HPI (History of Present Illness) Category Sub-Category Detail Notes Category Not es incontinence I saw Megan in the office today for evaluation of colorectal cancer screening. As you know, Megan is a 73-year-old male who feels well from a GI standpoint. He describes a good appetite, without any significant heartburn or dysphagia. He does take a daily Pepcid in relation to some reflux and a distant history of ulcer disease. He denies any abdominal pain, jaundice, unintentional weight loss, change in bowel habits, hematochezia, or melena. He describes his bowel movements are fairly regular. He denies any known family history of colon cancer. Megan has had 2 previously negative colonoscopies with the most recent one being [address] Summers at [facility]. Laboratories in January revealed a normal CBC, normal chemistries, and normal LFTs. Examination Category Sub-Category Detail Notes Category Not es General Examination GENERAL APPEARANCE: pleasant , well nourished, well developed, in no acute distress HEAD: EYES: sclera non-icteric EARS: NOSE: THROAT: NECK/THYROID: no cervical lymphade nopathy, neck supple HEART: S1, S2 normal CHEST: LUNGS: clear to auscultatio n bilaterally ABDOMEN: normal bowel sounds, no guarding or rigidity, no guarding or rigidity, no masses palpable, soft, nontender, nondistended NEUROLOGIC: alert and oriented SKIN: nonjaundiced, no spi luzma angiomata EXTREMITIES: no edema PERIPHERAL PULSES: BACK: BREASTS: MUSCULOSKELETAL: MALE GENITOURINARY: LYMPH NODES: RECTAL EXAM: FEMALE GENITOURINARY: ORAL CAVITY: mucosa moist
--- OUTSIDE RECORDS SUMMARY | 2025-01-07 09:09 | XMS_ITS | Data Portability ---
Author Organization [facility] [employer], [employer] Address [address] [place] [address] Care Team Providers Care Photographic Supervisor Name Role Phone JOSSUE DELACRUZ Referring Provider [phone] JOSSUE DELACRUZ Referring Provider JOSSUE DELACRUZ Primary Care Provider Assessment Encounter Date Assessment Date Assessment LastModified by Organization Details LastModified Time 2023 2023 IMPRESSION: episodic bilateral thigh and calf cramps, including the left anterior thigh which correlated with worsening left L3-4 foraminal stenosis August 2018 MRI L-spine, but not with EMG abnormality June 2018. Symptoms all occurring correlating with how vigorous his ambulation exercise has been that day. MRI lumbar spine without contrast June 26, 2023 compared to previous study September 01, 2020, per dictation [facility] neuroradiology Dr. Elizabeth Aguilar L2-3 unchanged severe left neuroforaminal narrowing L3-4 unchanged severe bilateral neuroforaminal narrowing L4-5 postsurgical changes including susceptibility artifact from hardware; I reviewed the images online with the patient. I agree with the reading of neurosurgery. She is numbness and the catches he feels when [...] for this symptom, therefore. That narrowing seems to may on imaging more marked than the left-sided L2-3 narrowing that [...] in the evening, and still be careful gift consultant the next day. We reviewed options when [...] prioe trace/trace as opposed to prior to 11/27. Left sided ankle reflex is reduced [...] the S1 myotome, and which correlated with electrodiagnostic results: right-sided S1 radiculopathy and likely [...] defer to primary care. PLAN Adria Qureshi 2023 MRI L spine For worsening back pain with walking, new left thigh numbness in ~L3 distribution, known left L3-4 foraminal stenosis, compared to previous studies please For leg spasms: CONTINUE clonazepam 1 mg tablet tablets, 1 tablet, every 7 PM continue gabapentin 600 mg every evening, started December 2022, [...] 1 tab, rarely 2 tabs. Follow-up in 5 months mrossen Not available 2023 13:15:20 01/20/2024 01/20/2024 IMPRESSION: episodic bilateral thigh and calf cramps, [...] robust physical exertion; current medications are adequate. >>>>>>>>>>>>>>>>>[facility] 2023 Symptoms of presumptive transient left L3 radiculopathy are clearing. Decision against consulting neurosurgery seems a good one. He is happy with his current medication regimen. We will make no changes. >>>>>>>>>>>>2023 I reviewed June 26, 2023 MRI Lspine images online with the patient. I agree with the reading of neurosurgery. The numbness and the catches he feels [...] in the evening, and still be careful gift consultant the next day. We reviewed options when [...] the S1 myotome, and which correlated with electrodiagnostic results: right-sided S1 radiculopathy and likely [...] defer to primary care. PLAN Adria Qureshi January 20, 2024 For leg spasms: CONTINUE clonazepam 1 mg tablet tablets, 1 [...] 1 tab, rarely 2 tabs. Follow-up in 5 months [place] Not available 01/20/2024 09:03:45 04/15/2024 04/15/2024 IMPRESSION: episodic bilateral thigh and calf cramps, [...] --April 15, 2024 worsening cramping with exercise >>>>>>>>>>>>April 15, 2024 I will refer him to neurosurgery, Dr. Lozano, for consideration of neurosurgical management for his worsening cramping. I believe his most recent MRI lumbar spine, June 26, 2023, is sufficiently recent. If I find that it does not, I will order another MRI lumbar spine. >>>>>>>>>>>>>>>>>[facility] 2023 Symptoms of presumptive transient left L3 [...] in the evening, and still be careful gift consultant the next day. We reviewed options when [...] from 1+ down to trace prior to 2019 but that reflex ascertainment is confounded by [...] the S1 myotome, and which correlated with electrodiagnostic results: right-sided S1 radiculopathy and likely [...] defer to primary care. PLAN Adria Qureshi April 15, 2024 referral to neurosurgery, Dr. Lozano, for consideration of neurosurgical management for his worsening leg cramping, bilateral very mild hip adductor weakness, previous surgery: 2018. For leg spasms: CONTINUE clonazepam 1 mg tablet tablets, 1 [...] 1 tab, rarely 2 tabs. Follow-up in 5 months mrossen Not available 04/15/2024 10:47:34 06/21/2024 06/21/2024 IMPRESSION: episodic bilateral thigh and calf cramps, [...] --April 15, 2024 worsening cramping with exercise >>>>>>IMAGING MRI lumbar spine without contrast May 23, 2024, per dictation Dr. Strickland, neuroradiology [facility]: L3-L4 with bilateral severe neuroforaminal narrowing with probable bilateral L3 nerve root compression; also moderate canal stenosis and subarticular recess narrowing bilaterally with crowding of descending L4 nerve roots. Postoperative changes at the level degenerative changes are unchanged from previous, June 26, 2023 >>>>>>>>>>>>June 21, 2024 MRI L-spine April 2024 [...] I will order another MRI lumbar spine. >>>>>>>>>>>>>>>>>[facility] 2023 Symptoms of presumptive transient left L3 [...] in the evening, and still be careful gift consultant the next day. We reviewed options when [...] the S1 myotome, and which correlated with electrodiagnostic results: right-sided S1 radiculopathy and likely [...] defer to primary care. PLAN Adria Qureshi June 21, 2024 referral to neurosurgery, Dr. Lozano, for consideration of neurosurgical management for his worsening leg cramping, bilateral very mild hip adductor weakness, previous surgery: 2018. For leg spasms: CONTINUE clonazepam 1 mg tablet tablets, 1 [...] 1 tab, rarely 2 tabs. Follow-up in 5 months mrossen Not available 06/21/2024 09:01:39 12/21/2024 12/21/2024 IMPRESSION: episodic bilateral thigh and [...] worsening cramping with exercise --December 21, 2024 [facility] neurosurgery not recommending surgical intervention; continued painful cramping at night after exercise, less during the winter? e xercising less. >>>>>>IMAGING MRI lumbar spine without contrast May 23, 2024, per dictation Dr. Strickland, neuroradiology [facility]: L3-L4 with bilateral severe neuroforaminal narrowing with [...] outweighs benefit, which is different from the [place] neurosurgery opinion? t aletheay offered surgery. This is detailed in HPI. He is thinking of going to the gym. He lifts weights, usually with upper body? w ithout arms above shoulders because of arthritis. I suggest he find a labor trainer to help with gently strengthening his core. [...] I will order another MRI lumbar spine. >>>>>>>>>>>>>>>>>[facility] 2023 Symptoms of presumptive transient left L3 [...] in the evening, and still be careful gift consultant the next day. We reviewed options when [...] rarely 2 tabs. Follow-up in 8 months mrossen Not available 12/21/2024 09:07:10 Plan of Treatment Reminders Order Date Submit Date Provider Last Modified By Organization Details Last Modified Time Details Appointments FOLLOW UP EXT 2024 08:30A M Ryan Pagan MD PhD Not available Not available Not available Lab None recorded. Referral neurologi jean-paul surgeon referral - considera tion of neurosurg ical managemen t for his worsening leg cramping, bilateral very mild hip adductor weakness, previous surgery: 2018. 2023 024 tania Lozano MD, [address] [facility] [[email or web address] [address], [address], 07/13/2024 10:57:57 neurologi jean-paul surgeon referral - considera tion of neurosurg ical managemen t for his worsening leg cramping, bilateral very mild hip adductor weakness, previous surgery: 2017. 2023 024 tania Lozano MD, [address] , [facility] [[email or web address]] [address] [place], [address], 11/04/2024 13:19:39 Procedures None recorded. Surgeries None recorded. Imaging None recorded. Medication Orders baclofen 10 mg tablet 2023 024 [facility]1972, [address] [place] [address], [id number], 01/20/2024 08:51:48 gabapenti n 600 mg tablet 2023 024 [facility], [address] [place] [address], [address], 01/20/2024 08:51:47 baclofen 10 mg tablet 2022 023 [facility], [address] [place] [address], [address], 2023 13:13:28 gabapenti n 600 mg tablet 2022 023 [facility]1972, [address] [place], [address], 2023 13:13:29 Patient TargetsNo targets recorded. Patient Instructions Encounter Date Encounter Id Patient Instructions Last Modified By Organization Details Last Modified Time 2023 [id number] June 18, 2023 He would like repeat [...] intensive monitoring for toxicity mrossen Not available 2023 13:11:20 01/20/2024 [id number] June 18, 2023 He would like repeat [...] intensive monitoring for toxicity mrossen Not available 01/20/2024 08:36:32 04/15/2024 [id number] June 18, 2023 He would like repeat [...] intensive monitoring for toxicity mrossen Not available 04/15/2024 10:19:55 06/21/2024 [id number] June 18, 2023 He would like repeat [...] intensive monitoring for toxicity mrossen Not available 06/21/2024 08:42:04 12/21/2024 [id number] June 18, 2023 He would like repeat [...] Not available 12/21/2024 08:33:06 Reason for Referral Neurological Surgeon Referra l for Degenerative lumbar spinal stenosis consideration of neurosurgical management for his worsening leg cramping, bilateral very mild hip adductor weakness, previous surgery: 2018. Referring Physician: Ryan Pagan, Neurology, Encounter Date: 04/15/2024 Neurological Surgeon Referra l for Degenerative lumbar spinal stenosis consideration of neurosurgical management for his worsening leg cramping, bilateral very mild hip adductor weakness, previous surgery: 2018. Referring Physician: Ryan Pagan, Neurology, Encounter Date: 06/21/2024 Results Created Date Observation Date Name Description Value Unit Range Abnormal Flag Note LastModifiedBy Organization Detail LastModifiedTime 05/24/2005/23/2024 MRI, lumba r spine , w/o contr ast [facility] [place] field Access ion Number : [id number] Vidal still Name: Adria Qureshi Record Number : [id number] Date of : 1949 Date of Exam: 2023 Referr ing Physic sarah: Joana Pagan [facility] Neurol [facility] [address] [facility] [address] [place] [address] Exam: MR Lumbar Spine (C-) CPT 72984 Room Descri ption: [place] Siem Verio 3.0T HISTOR Y: Back pain. COMPAR LORETO: Lumbar spine MRI 023. FINDIN GS: ALIGNM ENT, VERTEB KATHY, MARROW , AND DISCS: There is subtle dextro scolio sis of the mid lumbar spine with minima l stairs tep retrol isthes is from L2-L4 and minima l tomer listhe sis of L4 on L5. This is simila r to prior. Verteb ral body height s are preser cynthia. 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 There is severe disc space narrow ing at L2-3, L3-4, L4-5 with anteri or osteop hytes. Mixed Modic type I and type comple te change s are also seen at L2-3 and L3-4. CONUS: The visual ized lower thorac ic cord is normal in calibe r and signal . The conus termin ates at L1-2. PARASP INAL TISSUE S: Retrop eriton eal soft tissue s are unrema rkable . There is severe fatty atroph y of the biscuit factory worker ior parasp inal muscle s inferi diana. DETAIL ED FINDIN GS BY LEVEL: L1-L2: There is no signif icant canal or neural forami nal stenos is. L2-L3: There is diffus e disc osteop hyte, biscuit factory worker ior ligame ntous thicke little, and facet spurri ng causin g mild canal stenos is as well as mild right and modera te left neural forami nal stenos is. L3-L4: There is diffus e disc osteop hyte, biscuit factory worker ior ligame ntous thicke little, and facet spurri ng causin g modera te canal stenos is. There is narrow ing of both subart icular recess es with crowdi ng of both descen ding L4 nerve roots. There is severe narrow ing of both neural forame n result ing in probab le compre ssion of both exitin g L3 nerve roots. L4-L5: There has been prior collins ctomy with biscuit factory worker ior fusion . Disc osteop hyte is seen withou t canal stenos is. The right neural forame n is patent . Left-s ided margin al osteop hyte contri butes to mild to modera te narrow ing of the left neural forame n. L5-S1: There is a tiny centra l protru lupe and bilate ral facet spurri ng withou t canal stenos is. The neural forame n are patent . IMPRES LUPE: 1. Postop erativ e and multil evel degene rative change s are seen as descri bed, simila r to 023. 2. There is modera te canal stenos is at L3-4 as well as severe narrow ing of both neural forame n with probab le compre ssion of both exitin g L3 nerve root. 3. Please see detail ed levels above. Electr onical ly Signed By: Jane cormier MD [email or web address] [facility] ([facility]) [address], [place], [address], 05/27/2024 14:20:23 05/24/20 24 05/23/2024 MRI, lumba r spine , w/o contr ast No observ ation record ed. [email or web address] [facility] ([facility]) [address], [place], [address], 05/27/2024 14:21:06 Result Notes None recorded. Procedures Surgical History Date Name Laterality Status Provider Name and Address Organization Details Recorded Time 12/21/2024 DATA REVIEW completed Ryan Pagan MD [address] [place], [place] [address] [place], [phone], [facility] 12/21/2024 08:35:57 06/21/2024 DATA REVIEW completed Ryan Pagan MD [address] [place], [place] [address] [place], [phone], [facility] 06/21/2024 08:46:24 04/15/2024 DATA REVIEW completed Ryan Pagan MD [address] [place], [place] [address] [place], [address], [facility] 04/15/2024 10:19:54 01/20/2024 DATA REVIEW completed Ryan Pagan MD [address] [place], [place] [address] [place], [phone], [facility] 01/20/2024 08:41:31 2023 DATA REVIEW completed Ryan Pagan MD [address] [place], [place] [address] [place], [phone], [facility] 2023 12:49:33 06/18/2023 DATA REVIEW completed Ryan Pagan MD [address] [place], [place] [address] [place], [address], [facility] 06/18/2023 08:30:17 01/08/2023 DATA REVIEW completed Ryan Pagan MD [address] [place], [place] [address] [place], [phone], [facility] 01/08/2023 08:31:00 08/13/2022 DATA REVIEW completed Ryan Pagan MD [address] [place] [address] [place], [phone], [facility] 08/13/2022 07:58:32 02/12/2022 DATA REVIEW completed Ryan Pagan MD [address] [place] [address] [place], [phone], [facility] 02/12/2022 08:27:33 09/17/2021 DATA REVIEW completed Ryan Pagan MD [address] [place] [address] [place], [phone], [facility] 09/17/2021 10:13:12 04/16/2021 DATA REVIEW completed Ryan Pagan MD [address] [place] [address] [place], [phone], [facility] 04/16/2021 10:04:45 Imaging Results Imaging Date Name Status LastModified by Organiz ation Details LastModified Time 05/23/2024 MRI, lumbar spine, w/o contrast completed [address] [facility] ([facility]) [address], [place], [address], 05/27/2024 14:20:23 05/23/2024 MRI, lumbar spine, w/o contrast completed [address] [facility] ([facility]) [address], [place], [address], 05/27/2024 14:21:06 Procedure Notes None recorded. 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 G60.3 Degenerati ve lumbar spinal stenosis [id number] M48.061 [id number] Ryan Pagan MD [facility] [address] [place] [address] [place] [address] 09/17/2021 09:52:39 09/17/2021 10:43:12 Idiopathic progressive polyneuropathy 99374122 G60.3 Degenerati ve lumbar spinal stenosis 643129695 M48.061 Dystonia 09206220 G24.1 [id number] Ryan Pagan MD [facility] [address] [place] [address] [place] [address] 02/12/2022 08:22:30 02/12/2022 09:19:32 Idiopathic progressive polyneuropathy 22092225 G60.3 Degenerati ve lumbar spinal stenosis 402203540 M48.061 [place]stonia 22177024 G24.1 [id number] Ryan Pagan MD [facility] [address] [place] [address] [place] [address] 08/13/2022 07:54:58 08/13/2022 15:40:32 Idiopathic progressive polyneuropathy 27118592 G60.3 Degenerati ve lumbar spinal stenosis 486160894 M48.061 Dystonia 28541102 G24.1 [id number] Ryan Pagan MD [facility] [address] [place] [address] [place] [address] 01/08/2023 08:24:36 01/08/2023 09:33:04 Idiopathic progressive polyneuropathy 39013341 G60.3 Degenerati ve lumbar spinal stenosis 861670401 M48.061 [place]stonia 86353783 G24.1 [id number] Ryan Pagan MD [facility] [address] [place] [address] [place] [address] 06/18/2023 08:25:09 06/18/2023 09:37:18 Idiopathic progressive polyneuropathy 16144408 G60.3 Degenerati ve lumbar spinal stenosis 636023630 M48.061 [place] 29880113 G24.1 [id number] Ryan Pagan MD [facility] [address] [place] [address] [place] [address] 2023 12:29:01 2023 16:58:45 Idiopathic progressive polyneuropathy 47381138 G60.3 Degenerati ve lumbar spinal stenosis 926507648 M48.061 [place] 81391935 G24.1 [id number] Ryan Pagan MD [facility] [address] [place] [address] [place] [address] 01/20/2024 08:23:29 01/20/2024 09:17:12 Idiopathic progressive polyneuropathy 71056561 G60.3 Degenerati ve lumbar spinal stenosis 955644568 M48.061 [place] 61901063 G24.1 [id number] Ryan Pagan MD [facility] [address] [place] [address] [place] [address] 04/15/2024 09:59:44 04/15/2024 10:54:38 Idiopathic progressive polyneuropathy 31316723 G60.3 Degenerati ve lumbar spinal stenosis 993714062 M48.061 [place] 63373451 G24.1 [id number] Ryan Pagan MD [facility] [address] [place] [address] [place] [address] 06/21/2024 08:26:22 06/21/2024 09:40:35 Idiopathic progressive polyneuropathy 40430014 G60.3 Degenerati ve lumbar spinal stenosis 562811618 M48.061 [place] 32264530 G24.1 [id number] Ryan Pagan MD [facility] [address] [place] [address] [place] [address] 12/21/2024 08:23:13 12/21/2024 16:53:39 Idiopathic progressive polyneuropathy 11687265 G60.3 Degenerati ve lumbar spinal stenosis 101078690 M48.061 [place] 39415514 G24.1 Health Concerns Section Related Observation LastModified by Organization Detai ls LastModified Time None Recorded Concern Status LastModified by Organization Details LastModified Time None Recorded Advance Directives Directive None Recorded Payers Encounter Date Sequence Insurance Name Policy Number Policy Terry Covered Member ID Terry Member ID Guarantor Name 2023 1 [facility]: MEDIC[place] PPO BLUE (MEDICARE REPLACEMENT PPO) [id number] Adria Qureshi [id number] Adria Qureshi 01/20/2024 1 [facility]: [place] BLUE (MEDICARE REPLACEMENT PPO) [id number] Adria Qureshi [id number] Adria Qureshi 04/15/2024 1 [facility]: MEDICARE PPO BLUE (MEDICARE REPLACEMENT PPO) [id number] Adria Qureshi [id number] Adria Qureshi 06/21/2024 1 [facility]: MEDICARE PPO BLUE (MEDICARE REPLACEMENT PPO) [id number] Adria Qureshi [id number] Adria Qureshi 12/21/2024 1 [facility]: MEDICARE PPO BLUE (MEDICARE REPLACEMENT PPO) [id number] Adria Qureshi [id number] Adria Qureshi Notes Date Note Type Note Provider Name and Address Organization Details Recorded Time 2023 text/html Follow up for painful muscle spasm in lower extremities residual from back pain going down left more than right leg, with intermittent numbness and frequent spasms, all partially improved with lower back surgery September 2017. He is unaccompanied. >>>>>>>>>>>>>>>>> August 21, 2023Since June 18, 2023 [...] other medication changes or new/changing medical conditions. >>>>>>>>>>>>>>>>>[facility] 2022Since August 13, 2022 neurology follow-up encounter, [...] spasms more likely.He has a surgeon in [place] for his back who sends him a [...] legs more likely.He has a surgeon in [place] for his back who sends him a [...] now less frequent and less intense: tolerable. Jkqv-ins-qbtcgxz analgesics suffice for this back pain currently [...] down without intolerable spasm. Ryan Pagan MD [address] [place] [address], [phone], [facility] Neu[facility] 2023 13:15:26 01/20/2024 text/html Follow up for painful muscle spasm in lower extremities residual from back pain going down left more than right leg, with intermittent numbness and frequent spasms, all partially improved with lower back surgery September 2017. He is unaccompanied.>>>>>> >>>>>>>>>>>January 20, 2024Since 2023 neurology follow-up encounter, he is doing [...] spasms more likely.He has a surgeon in [place] for his back who sends him a [...] legs more likely.He has a surgeon in [place] for his back who sends him a [...] now less frequent and less intense: tolerable. Byrl-grv-oaahmdv analgesics suffice for this back pain currently [...] down without intolerable spasm. Ryan Pagan MD [address] [place] [address], [phone], [facility] Neurology [facility] 01/20/2024 09:03:59 04/15/2024 text/html Follow up for painful muscle spasm in lower extremities residual from back pain going down left more than right leg, with intermittent numbness and frequent spasms, all partially improved with lower back surgery September 2017. He is unaccompanied.>>>>>> >>>>>>April 15, 2024Since January 20, 2024 Neurology follow-up [...] He has consulted with Dr. Lozano at [facility] in the past and he would like to see what Dr. Lozano thinks of his MRI in relationship to his worsening symptoms. He is interested in surgery if there is a chance that surgery might relieve him of his continual cramping related to exercise that he loves.He notes previous back surgery in 2018 at [facility]. >>>>>>>>>>>>>>>>>Mar 2023Since 2023 neurology follow-up encounter, he [...] spasms more likely.He has a surgeon in [place] for his back who sends him a [...] legs more likely.He has a surgeon in [place] for his back who sends him a [...] now less frequent and less intense: tolerable. Ugsc-zgm-smnhrnw analgesics suffice for this back pain currently [...] down without intolerable spasm. Ryan Pagan MD [address] [place] [address] [place], [phone], [facility] Neu[facility] 04/15/2024 10:47:48 06/21/2024 text/html Follow up for painful muscle spasm in lower extremities residual from back pain going down left more than right leg, with intermittent numbness and frequent spasms, all partially improved with lower back surgery September 2017. He is unaccompanied. >>>>>>>>>>>>June 21, 2024Since April 15, 2024 Neurology [...] He has consulted with Dr. Lozano at [facility] in the past and he would like to see what Dr. Lozano thinks of his MRI in relationship to his worsening symptoms. He is interested in surgery if there is a chance that surgery might relieve him of his continual cramping related to exercise that he loves.He notes previous back surgery in 2018 at [facility]. >>>>>>>>>>>>>>>>>Mar 2023Since 2023 neurology follow-up encounter, he [...] he feels in danger of falling? h jonh has not fallen or stumbled. He continues [...] 2.5 tablets when he over exercised? d adrián sit ups for the first time in [...] spasms more likely.He has a surgeon in [place] for his back who sends him a [...] legs more likely.He has a surgeon in [place] for his back who sends him a [...] now less frequent and less intense: tolerable. Vost-rdc-ycwqncr analgesics suffice for this back pain currently [...] down without intolerable spasm. Ryan Pagan MD [address] [place] [address] [place], [phone], [facility] Neurology [facility] 06/21/2024 09:01:44 12/21/2024 text/html Follow up for painful muscle spasm in lower extremities residual from back pain going down left more than right leg, with intermittent numbness and frequent spasms, all partially improved with lower back surgery September 2017. He is unaccompanied.>>>>>> >>>>>>December 21, 2024Since June 21, 2024 Neurology follow-up encounter, he is doing okay, getting back. He has had [facility] neurosurgery consultation with Dr. Lozano. Neurosurgery opinion is that degenerative abnormality is not sufficiently severe to suggest that benefit for cramps with exercise symptomatology outweighs risks of surgery. Our patient notes that this is a different opinion that he received from a [place] neurosurgeon who thought that some intervention at [...] He has consulted with Dr. Lozano at [facility] in the past and he would like to see what Dr. Lozano thinks of his MRI in relationship to his worsening symptoms. He is interested in surgery if there is a chance that surgery might relieve him of his continual cramping related to exercise that he loves.He notes previous back surgery in 2018 at [facility]. >>>>>>>>>>>>>>>>>Mar 2023Since 2023 neurology follow-up encounter, he [...] spasms more likely.He has a surgeon in [place] for his back who sends him a [...] legs more likely.He has a surgeon in [place] for his back who sends him a [...] now less frequent and less intense: tolerable. Wlbv-cmi-cwkvipj analgesics suffice for this back pain currently [...] down without intolerable spasm. Ryan Pagan MD [address] [place] [address] [place], [phone], [facility] Neurology [facility] 12/21/2024 09:07:23
--- OUTSIDE RECORDS SUMMARY | 2025-01-07 09:09 | XMS_ITS ---
Author Organization [facility] Address [address] [place] [address] Care Team Providers Care Core Java Software Engineer Name Role Phone Leo Wiley MD Primary Care Provider Alvaro Ramirez [phone] REASON FOR VISIT screening Problems Problem Type SNOMED Code ICD Code Onset Dates Problem Status W/U Status Risk Notes Problem Diverticular disease of colon (071430219) Diverticulosis of large intestine without perforation or abscess without bleeding (K57.30) Active confirmed Encounters Encounter Location Date Provider Diagnosis [facility] Outpatient [address] [place] [phone] 09/13/2024 Alvaro Tobar Colon cancer scree little Z12.11 ; Diverticulosis of large intestine without perforation or abscess without bleeding K57.30 and Other hemorrhoids K64.8 Assessments Encounter Date Diagnosis (ICD Code) Assessment Notes Treatment Notes Treatment Clinical Notes Section Notes 09/13/2024 Colon cancer screening (ICD-10 - Z12.11) 09/13/2024 Diverticulosis of large intestine without perforation or abscess without bleeding (ICD-10 - K57.30) 09/13/2024 Other hemorrhoids (ICD-10 - K64.8) Plan Of Treatment No Information Progress Notes * MEGAN PUGHDOB:1950 ( 74 yo M)Acc No.[id number]:09/13/2024 COLON WITH MAC Patient:?MEGAN PUGH Provider:?Alvaro Tobar MD :1950???Age:74 Y???Sex:Male Sky e:09/13/2024 Address:[address] [place], [place] Pcp:Leo Wiley MD Subjective: * Chief Complaints: * ???1. Screening. * Medical History:? Objective: * Vitals:? Assessment: * Assessment: 1.?Colon cancer screening - Z12.11 (Primary)???2.?Diverticulosis of large intestine without perforation or abscess without bleeding - K57.30???3.?Other hemorrhoids - K64.8??? Plan: * Treatment: * Procedure Codes:?G0121 COLOR EC CNCR SCR;COLNSCPY NO HI RSK, 0529F INTRVL 3+YRS PTS CLNSCP DOCD, 0528F RCMND FLW-UP 10 YRS DOCD, Modifiers: 1P * * The named appointment provid er may or may not be the originator of this progress note, and it is not deemed complete until electronically signed by the appointment provider. Sign off status: Pending * Provider:?Alvaro Tobar MD Date:? 024 Generated for Tomy lai/Woody/Papasmitting on:?01/07/2025 09:08 AM EDT
== END 2025-01-07 09:10 | disposition home or self-care (01) ==
LOC: HO.HMCH 08:49
PROVIDERS: PCP Internal Medicine; Visit Provider Internal Medicine
DX: Z00.00 Encounter for general adult medical examination without abnormal findings (principal); M48.00 Spinal stenosis, site unspecified

== ENCOUNTER 2025-03-10 10:22 | Outpatient (AMB) | payer MEDICARE, SELFPAY ==
--- NOTE | 2025-03-10 10:25 | MHC.OFFVIS ---
Intake Visit Reasons: 6m/PVR Intake Note: Pt presents to the office today for a 6 month follow up/PVR. Urology Meds: Tadalafil,Tamsulosin PVR:0ml Allergies No Known Allergies Allergy (Verified 03/10/25 10:25) HPI Comments Details: Adria is a pleasant male. He is a patient Dr. Taylor. He is seen for the following urologic conditions - erectile dysfunction - lower urinary tract symptoms Six-month follow-up office Has been on combination tadalafil and tamsulosin Continue tadalafil daily 5 mg with 10 mg on demand One year follow-up office PVR Erectile dysfunction Current therapy 5 mg daily with 10 mg on demand tadalafil Initial evaluation - Progressive - Able to obtain but cannot maintain erection Concurrent diagnosis includes nocturia Medications include gabapentin, clonazepam Lower urinary tract symptoms Initial symptoms include weakness of stream and frequency Good response to daily tamsulosin Nocturia 1-2x PSA 01/17 0.6 PFSH Medical History Bradycardia Duodenal ulcer GERD (gastroesophageal reflux disease) Gout Spinal stenosis Surgical History History of skin surgery Hx of hand surgery History of colonoscopy H/O spinal fusion History of inguinal hernia repair Family History Father Tubular adenoma Mother Alzheimers disease Maternal Aunt Breast cancer Maternal Uncle Lung cancer Maternal Grandfather Lung cancer Brother No problems noted. Brother No problems noted. Sister No problems noted. Sister No problems noted. Daughter No problems noted. Daughter No problems noted. Daughter No problems noted. Social History Housing: Condominium Are you a primary transitional care liaison to a significant other at home: No Do you presently have visiting nurse or other home services: No Alcohol intake: current Alcohol intake frequency: a few times a month Patient Tobacco Use Status: Former Tobacco user Tobacco use type: Cigarette Years Smoked: 8 e-Cigarette/Vaping Use: Never Used Second Hand Smoke Exposure: No service: No Current occupational status: employed Cognitive needs: No Hearing needs: No Vision needs: Yes (glasses) Review of Systems Const Denies chills and Denies fever(s) Card Reports no additional complaints and Denies syncope Resp Denies cough GI Denies abdominal pain and Denies heartburn Reports as per HPI and Denies change in libido Neuro Denies syncope Psych Denies change in libido Endo Denies change in libido Physical Exam Const General: cooperative, healthy appearing, comfortable and no acute distress Orientation/consciousness: patient oriented x3 HEENT Face and sinus: Yes normal facial exam Mouth: moist mucous membranes Neck Neck: Yes normal visual inspection, Yes full ROM and Yes trachea midline Chest Chest palpation & inspection: normal inspection of the chest Resp Effort & Inspection: normal respiratory effort, able to speak in complete sentences and no respiratory distress GI Inspection: Yes normal to inspection Back/Spine/Pelvis Cervical Spine: normal cervical lordosis Thoracic/Lumbar Spine: thoracic and lumbar spine normal to inspection Skin General skin exam: no rashes or lesions noted Neuro General: patient oriented x3, gait normal, tone normal and moves all extremities Extrem General: Yes normal to inspection and Yes capillary refill normal Office Procedures Post Void Residual Post Residual Void Post Void Residual (PVR): 0 57586-Nczs Void Residual by ultrasound Assessment & Plan Assessment & Plan (1) Weak urinary stream: Code(s): R39.12 - Poor urinary stream Category: Medical (2) Erectile dysfunction: Code(s): N52.9 - Male erectile dysfunction, unspecified Category: Medical (3) Nocturia more than twice per night: Code(s): R35.1 - Nocturia Category: Medical Plan Twelve month follow-up Refill medications Orders: Orders AMB Post Void Residual by ultrasound 03/10/25 R39.12 - Poor urinary stream Medications: Refilled tadalafil 5 mg PO DAILY 90 tabs 3RF sexual activity 90 days N52.9 - Male erectile dysfunction, unspecified tamsulosin 0.4 mg PO BEDTIME 90 caps 3RF 90 days R35.1 - Nocturia, N40.1 - Benign prostatic hyperplasia with lower urinary tract symptoms Patient Instructions: This note is constructed using voice recognition software. While every effort has been made to ensure accuracy marketing team lead errors may have been included. Imaging studies, laboratory and physical exam results were discussed and reviewed in detail. No major barriers to patient understanding were identified. An opportunity to ask questions regarding the treatment plan was provided. All questions were answered. The patient expressed understanding and agreement with the above treatment plan. The patient is aware they should contact our office by phone for worsening of their current condition or the appearance of new urologic symptoms. Compliance is encouraged with any medications and followup testing that is ordered. It is a privilege to participate in the urologic care of your patient. If you have any questions or concerns regarding treatment for the above conditions, or other urologic issues, please do not hesitate to contact me. The office telephone contact is [phone]. Sincerely, Dr Matthew Giron MD, [facility] - Urology Compassionate Specialist Care for the Genitourinary System Coding Level of Care Code Est Pt Level 3 (50760) Diagnoses Weak urinary stream R39.12 Erectile dysfunction N52.9 Nocturia more than twice per night R35.1 CPT Codes Post Residual Void - PVR CPT Code: 95306-Jayv Void Residual by ultrasound ([id number])
--- OUTSIDE RECORDS SUMMARY | 2025-03-10 11:27 | XMS_ITS | Patient Health Record ---
Author Organization [facility] Address [address] [place] [address] Care Team Providers Care Transportation Dispatcher Name Role Phone Leo Wiley MD Primary Care Provider Alvaro Ramirez Unavailable [phone] Allergies No Known Allergies Reason For Referral [...] Status Risk Notes Problem Colon cancer screening (471882403) Colon cancer screening (Z12.11) Active confirmed Problem Pre-procedure evaluation check (786392021) Encounter for other preprocedural examination (Z01.818) Active confirmed Problem Diverticulosis o f large intestine without perforation or abscess without bleeding (K57.30) Active confirmed Problem Non-steroidal anti-inflammat ory agent (91297934) Encounter for long-term (current) use of NSAIDs (Z79.1) Active confirmed Vital Signs Blood pressure diastolic 00 mm Hg 04/27/2024 Height 5 ft 7 in in 04/27/2024 Blood pressure systolic 00 mm Hg 04/27/2024 Weight 178 lbs 04/27/2024 BMI 27.88 kg/m2 04/27/2024 Encounters Encounter Location Date Provider Diagnosis [facility] Outpatient [address] [place], [place] [phone] 09/13/2024 Alvaro Tobar Colon cancer screeni ng Z12.11 ; Diverticulosis of large intestine without perforation or abscess without bleeding K57.30 and Other hemorrhoids K64.8 [facility] [address] [place] [address] 04/27/2024 Alvaro Tobar Colon cancer screeni ng [...] Insured Coverage Start Date Coverage End Date [facility] [address] [place] [address] [id number] MEGAN PUGH Self - patient is the insured Medical (General) History Medical History History ICD Code Spinal stenosis-surgery as below Gout 2 negative screening colonos copies. Last one was [address] Summers at [facility] Denies ND,DM,CVA,Lung disease,renal dise ase Hx of some reflux and a duodenal ulcer m any years ago Surgical History Surgery Date(Month/Year) Spinal fusion L4-L5 Inguinal hernia repair x 2 Skin cancers Hand surgery
--- OUTSIDE RECORDS SUMMARY | 2025-03-10 11:28 | XMS_ITS ---
Author Organization [facility] Address [address] [place] [address] Care Team Providers Care Development Advisor Name Role Phone Leo Wiley MD Primary Care Provider Alvaro Ramirez [phone] REASON FOR VISIT screening Problems Problem Type SNOMED Code ICD Code Onset Dates Problem Status W/U Status Risk Notes Problem Diverticular disease of colon (201530290) Diverticulosis of large intestine without perforation or abscess without bleeding (K57.30) Active confirmed Encounters Encounter Location Date Provider Diagnosis [facility] Outpatient [address] [place] [phone] 09/13/2024 Alvaro Tobar Colon cancer scree little [...] * MEGAN PUGHDOB:1950 ( 74 yo M)Acc No.[id number]:09/13/2024 COLON WITH MAC Patient:?MEGAN PUGH Provider:?Alvaro Tobar MD :1950???Age:74 Y???Sex:Male Sky e:09/13/2024 Address:[address] [facility] [place], [place] Pcp:Leo Wiley MD Subjective: * Chief Complaints: [...] MD Date:? 024 Generated for Tomy lai/Woody/Papasmitting on:?03/10/2025 11:27 AM EDT
--- OUTSIDE RECORDS SUMMARY | 2025-03-10 11:28 | XMS_ITS ---
Author Organization [facility] Address [address] [place] [address] Care Team Providers Care Cloth Sponger Name Role Phone Leo Wiley MD Primary Care Provider Alvaro Ramirez Unavailable [phone] Allergies No Known Allergies REASON FOR VISIT [...] Status Risk Notes Problem Colon cancer screening (456298365) Colon cancer screening (Z12.11) Active confirmed Problem Pre-procedure evaluation check (169634077) Encounter for other preprocedural examination (Z01.818) Active confirmed Problem Non-steroidal anti-inflammat ory agent (48000803) Encounter for long-term (current) use of NSAIDs (Z79.1) Active confirmed Vital Signs Blood pressure systolic 00 mm Hg 04/27/20 24 Blood pressure diastolic 00 mm Hg 024 Height 5 ft 7 in in 04/27/2024 Weight 178 lbs 04/27/2024 BMI 27.88 kg/m2 04/27/2024 Encounters Encounter Location Date Provider Diagnosis [facility] [address] [place] [address] 04/27/2024 Alvaro Tobar Colon cancer screeni ng [...] * MEGAN PUGHDOB:1950 ( 73 yo M)Acc No.[id number]:04/27/2024 Progress Notes Patient:?MEGAN PUGH Provider:?Alvaro Tobar MD :1950???Age:73 Y???Sex:Male Sky e:04/27/2024 Address:[address] [place] [address] Pcp:Leo Wiley MD Subjective: * Chief Complaints: [...] [address] Summers at [facility]. ?Laboratories in January revealed a normal CBC, [...] Procedure Codes:?3017F COLOR ECTAL CA SCREEN DOC [id number] TOBACCO NON-[id number] BP SCR NOT PRFRM REC REASON NOS * Preventive Medicine:? ??Counseling:?Care goal follow-up plan:?Above Normal BMI Follow-up?Giving encouragement to exercise,?BMI management provided?Yes.? * Follow Up:?prn * * Sign off status: Completed true * Provider:?Alvaro Tobar MD Date:? 024 Generated for Tomy lai/Woody/Eliuditting on:?03/10/2025 11:27 AM EDT History and Physical Notes * [...] [address] Summers at [facility]. Laboratories in January revealed a normal CBC, [...]
--- OUTSIDE RECORDS SUMMARY | 2025-03-10 11:28 | XMS_ITS | Data Portability ---
Author Organization Formerly [facility] [employer], [place] Address [address] [address] Care Team Providers Care Project Control Manager Name Role Phone JOSSUE DELACRUZ Referring Provider [phone] JOSSUE DELACRUZ Referring Provider JOSSUE DELACRUZ Primary [...] previous study September 01, 2020, per dictation [facility] neuroradiology Dr. 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 We reviewed options when [...] physical exertion; current medications are adequate. 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 We reviewed options when [...] I will order another MRI lumbar spine. 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 We reviewed options when [...] 23, 2024, per dictation Dr. Strickland, neuroradiology [facility]: L3-L4 with bilateral severe neuroforaminal narrowing with [...] I will order another MRI lumbar spine. 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 We reviewed options when [...] worsening cramping with exercise --December 21, 2024 [facility] neurosurgery not recommending surgical intervention; continued painful cramping at night after exercise, less during the winter? e xercising less. >>>>>>IMAGING MRI lumbar spine without contrast May 23, 2024, per dictation Dr. Strickland, neuroradiology [facility]: L3-L4 with bilateral severe neuroforaminal narrowing with [...] outweighs benefit, which is different from the [place] neurosurgery opinion? t aletheay offered surgery. This is detailed in HPI. He is thinking of going to the gym. He lifts weights, usually with upper body? w ithout arms above shoulders because of arthritis. I suggest he find a guide dog trainer to help with gently strengthening his [...] will order another MRI lumbar spine. 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 We reviewed options when [...] tania Lozano MD, [address] [facility] [address], [address], 07/13/2024 10:57:57 neurologi jean-paul surgeon referral - considera tion of neurosurg ical managemen t for his worsening leg cramping, bilateral very mild hip adductor weakness, previous surgery: 2017. 2023 024 tania Lozano MD, [address] , [facility] [address], [place], [address], 11/04/2024 13:19:39 Procedures None recorded. Surgeries None recorded. Imaging None recorded. Medication Orders baclofen 10 mg tablet 2023 024 [facility]armacy #1972, [address] [place] [address], [id number], 01/20/2024 08:51:48 gabapenti n 600 mg tablet 2023 024 [facility]armacy #1972, [address] [place] [address], [address], 01/20/2024 08:51:47 baclofen 10 mg tablet 2022 023 [facility]armacy #1972, [address] [place] [address], [id number], 2023 13:13:28 gabapenti n 600 mg tablet 2022 023 [facility]armacy #1972, [address] [place], [address], 2023 13:13:29 Patient TargetsNo targets recorded. Patient Instructions Encounter Date Encounter Id Patient Instructions Last Modified By Organization Details Last Modified Time 2023 [id number] June 18, 2023 He would like repeat [...] toxicity mrossen Not available 2023 13:11:20 01/20/2024 [id number] June 18, 2023 He would like repeat [...] toxicity mrossen Not available 01/20/2024 08:36:32 04/15/2024 [id number] June 18, 2023 He would like repeat [...] toxicity mrossen Not available 04/15/2024 10:19:55 06/21/2024 [id number] June 18, 2023 He would like repeat [...] toxicity mrossen Not available 06/21/2024 08:42:04 12/21/2024 [id number] June 18, 2023 He would like repeat [...] , w/o contr ast [facility] [place] field Access ion Number : [id number] Vidal still Name: Adria Qureshi Record Number : [id number] Date of : 1949 Date of Exam: 2023 Referr ing Physic sarah: Joana Pagan [facility] [address] [facility] [address] [place] [address] Exam: MR Lumbar Spine (C-) CPT 90410 Room Descri ption: [place] Siem Verio 3.0T HISTOR Y: Back pain. [...] erativ e change s are seen from top knitter ior fusion at L4-5 utiliz ing bilate [...] is severe fatty atroph y of the top knitter ior parasp inal muscle s inferi diana. DETAIL ED FINDIN GS BY LEVEL: L1-L2: There is no signif icant canal or neural forami nal stenos is. L2-L3: There is diffus e disc osteop hyte, top knitter ior ligame ntous thicke little, and facet spurri ng causin g mild canal stenos is as well as mild right and modera te left neural forami nal stenos is. L3-L4: There is diffus e disc osteop hyte, top knitter ior ligame ntous thicke little, and facet [...] There has been prior collins ctomy with top knitter ior fusion . Disc osteop hyte is [...] ly Signed By: Jane cormier MD [email or web address] [facility] ([facility]) [address], [place], [address], 05/27/2024 14:20:23 05/24/20 24 05/23/2024 MRI, lumba r spine , w/o contr ast No observ ation record ed. [email or web address] [facility] ([facility]) [address], [place], [address], 05/27/2024 14:21:06 Result Notes None recorded. Procedures Surgical History Date Name Laterality Status Provider Name and Address Organization Details Recorded Time 12/21/2024 DATA REVIEW completed Ryan Pagan MD [address] [place], [place] [address] [place], [address], Formerly [facility] 12/21/2024 08:35:57 06/21/2024 DATA REVIEW completed Ryan Pagan MD [address] [place], [place] [address] [place], [address], Formerly [facility] 06/21/2024 08:46:24 04/15/2024 DATA REVIEW completed Ryan Pagan MD [address] [place], [place] [address] [place], [address], [facility] 04/15/2024 10:19:54 01/20/2024 DATA REVIEW completed Ryan Pagan MD [address] [place], [place] [address] [place], [address], [facility]ly [facility] 01/20/2024 08:41:31 2023 DATA REVIEW completed Ryan Pagan MD [address] [place], [place] [address] [place], [address], [facility]ly [facility] 2023 12:49:33 06/18/2023 DATA REVIEW completed Ryan Pagan MD [address] [place], [place] [address] [place], [address], [facility]ly [facility] 06/18/2023 08:30:17 01/08/2023 DATA REVIEW completed Ryan Pagan MD [address] [place], [place] [address], [address], [facility] 01/08/2023 08:31:00 08/13/2022 DATA REVIEW completed Ryan Pagan MD [address] [place] [address] [place], [address], [facility] 08/13/2022 07:58:32 02/12/2022 DATA REVIEW completed Ryan Pagan MD [address] [place] [address] [place], [address], [facility] 02/12/2022 08:27:33 09/17/2021 DATA REVIEW completed Ryan Pagan MD [address] [place] [address] [place], [address], [facility] 09/17/2021 10:13:12 04/16/2021 DATA REVIEW completed Ryan Pagan MD [address] [place] [address] [place], [address], [facility] 04/16/2021 10:04:45 Imaging Results Imaging Date Name Status LastModified by Organiz ation Details LastModified Time 05/23/2024 MRI, lumbar spine, w/o contrast completed [address] [facility] ([facility]) [address], [place], [address], 05/27/2024 14:20:23 05/23/2024 MRI, lumbar spine, w/o contrast completed [address] [facility] ([facility]) [address], [place], [address], 05/27/2024 14:21:06 Procedure Notes None recorded. Medical [...] No t Available gabapentin 600 mg tablet 0.5 to 1.0 tab every evening for leg cramps 2024 active Not Available Not Available Not Avai lable clonazepam 1 mg tablet TAKE 1 TABLET BY MOUTH EVERY DAY AT 7PM 2024 active Not Available Not Available Not Avai lable tramadol 50 mg tablet TAKE 1 TABLET [...] Code Diagnosis Note [id number] Ryan Pagan MD [facility] [address] [place] [address] [place] [address] 04/16/2021 09:32:34 04/16/2021 10:28:37 Idiopathic progressive polyneuropathy 57348513 G60.3 Degenerati ve lumbar spinal stenosis [id number] M48.061 [id number] Ryan Pagan MD [facility] [address] [place] [address] [place] [address] 09/17/2021 09:52:39 09/17/2021 10:43:12 Idiopathic progressive polyneuropathy 25263022 G60.3 Degenerati ve lumbar spinal stenosis [id number] M48.061 Dystonia 82490354 G24.1 [id number] Ryan Pagan MD [facility] [address] [place] [address] [place] [address] 02/12/2022 08:22:30 02/12/2022 09:19:32 Idiopathic progressive polyneuropathy 32817623 G60.3 Degenerati ve lumbar spinal stenosis 527279716 M48.061 Dystonia 66940614 G24.1 [id number] Ryan Pagan MD [facility] [address] [place] [address] [place] [address] 08/13/2022 07:54:58 08/13/2022 15:40:32 Idiopathic progressive polyneuropathy 24717229 G60.3 Degenerati ve lumbar spinal stenosis 941962025 M48.061 Dystonia 52300252 G24.1 [id number] Ryan Pagan MD [facility] [address] [place] [address] [place] [address] 01/08/2023 08:24:36 01/08/2023 09:33:04 Idiopathic progressive polyneuropathy 38867430 G60.3 Degenerati ve lumbar spinal stenosis 338373499 M48.061 Dystonia 42101664 G24.1 [id number] Ryan Pagan MD [facility] [address] [place] [address] [place] [address] 06/18/2023 08:25:09 06/18/2023 09:37:18 Idiopathic progressive polyneuropathy 68739338 G60.3 Degenerati ve lumbar spinal stenosis 239773156 M48.061 Dystonia 40463632 G24.1 [id number] Ryan Pagan MD [facility] [address] [place] [address] [place] [address] 2023 12:29:01 2023 16:58:45 Idiopathic progressive polyneuropathy 17538415 G60.3 Degenerati ve lumbar spinal stenosis 069561702 M48.061 Dystonia 43193598 G24.1 [id number] Ryan Pagan MD [facility] [address] [place] [address] [place] [address] 01/20/2024 08:23:29 01/20/2024 09:17:12 Idiopathic progressive polyneuropathy 30466625 G60.3 Degenerati ve lumbar spinal stenosis 981314395 M48.061 Dystonia 18917049 G24.1 [id number] Ryan Pagan MD [facility] [address] [place] [address] [place] [address] 04/15/2024 09:59:44 04/15/2024 10:54:38 Idiopathic progressive polyneuropathy 58864329 G60.3 Degenerati ve lumbar spinal stenosis 182487680 M48.061 Dystonia 57205790 G24.1 [id number] Ryan Pagan MD [facility] [address] [place] [address] [place] [address] 06/21/2024 08:26:22 06/21/2024 09:40:35 Idiopathic progressive polyneuropathy 42850536 G60.3 Degenerati ve lumbar spinal stenosis 937720751 M48.061 Dystonia 82811343 G24.1 [id number] Ryan Pagan MD [facility] [address] [place] [address] [place] [address] 12/21/2024 08:23:13 12/21/2024 16:53:39 Idiopathic progressive polyneuropathy 17173868 G60.3 Degenerati ve lumbar spinal stenosis 562419427 M48.061 [place]stonia 09007266 G24.1 Health Concerns Section Related Observation LastModified by Organization Detai ls LastModified Time None Recorded Concern Status LastModified by Organization Details LastModified Time None Recorded Advance Directives Directive None Recorded Payers Encounter Date Sequence Insurance Name Policy Number Policy Terry Covered Member ID Terry Member ID Guarantor Name 2023 1 [employer]: MEDICARE PPO BLUE (MEDICARE REPLACEMENT PPO) [id number] Adria Qureshi [id number] Adria Qureshi 01/20/2024 1 [employer]: MEDIC[place] PPO BLUE (MEDICARE REPLACEMENT PPO) [id number] Adria Qureshi [id number] Adria Qureshi 04/15/2024 1 [employer]: MEDIC[place] PPO BLUE (MEDICARE REPLACEMENT PPO) [id number] Adria Qureshi [id number] Adria Qureshi 06/21/2024 1 [employer]: MEDIC[place] PPO BLUE (MEDICARE REPLACEMENT PPO) [id number] Adria Qureshi [id number] Adria Qureshi 12/21/2024 1 [employer]: MEDICARE PPO BLUE (MEDICARE REPLACEMENT PPO) [id number] Adria Qureshi [id number] Adria Qureshi Notes Date Note Type [...] spasms more likely.He has a surgeon in [place] for his back who sends him a [...] legs more likely.He has a surgeon in [place] for his back who sends him a [...] now less frequent and less intense: tolerable. Upug-dnn-vphjsfb analgesics suffice for this back pain currently [...] without intolerable spasm. Ryan Pagan MD [address] [place] [address], [address], [facility] 2023 13:15:26 01/20/2024 text/html Follow up for [...] spasms more likely.He has a surgeon in [place] for his back who sends him a [...] legs more likely.He has a surgeon in [place] for his back who sends him a [...] now less frequent and less intense: tolerable. Otjp-wnf-uvogrcm analgesics suffice for this back pain currently [...] without intolerable spasm. Ryan Pagan MD [address] [place] [address], [address], [facility] 01/20/2024 09:03:59 04/15/2024 text/html Follow up for [...] He has consulted with Dr. Lozano at [facility] in the past and he would like to see what Dr. Lozano thinks of his MRI in relationship to his worsening symptoms. He is interested in surgery if there is a chance that surgery might relieve him of his continual cramping related to exercise that he loves.He notes previous back surgery [place] [address] [facility]. >>>>>>>>>>>>>>>>>Mar 2023Since 2023 neurology follow-up encounter, he [...] other medication changes or new/changing medical conditions. >>>>>>>>>>>>>>>>>[facility] 2022Since August 13, 2022 neurology follow-up encounter, [...] spasms more likely.He has a surgeon in [place] for his back who sends him a questionnaire once a year. He is not ready for surgery, he states. >>>>>>>>>>>>>>>>>Jul good 2021:Since February 12, 2022 neurology follow-up [...] legs more likely.He has a surgeon in [place] for his back who sends him a [...] now less frequent and less intense: tolerable. Xzex-xhv-modxojl analgesics suffice for this back pain currently [...] down without intolerable spasm. Ryan Pagan MD [address] [place] [address] [place], [address], [facility] 04/15/2024 10:47:48 06/21/2024 text/html Follow up for [...] He has consulted with Dr. Lozano at [facility] in the past and he would like to see what Dr. Lozano thinks of his MRI in relationship to his worsening symptoms. He is interested in surgery if there is a chance that surgery might relieve him of his continual cramping related to exercise that he loves.He notes previous back surgery [place] [address] [facility]. >>>>>>>>>>>>>>>>>Mar 2023Since 2023 neurology follow-up encounter, he [...] other medication changes or new/changing medical conditions. >>>>>>>>>>>>>>>>>DecSince August 13, 2022 neurology follow-up encounter, he [...] spasms more likely.He has a surgeon in [place] for his back who sends him a questionnaire once a year. He is not ready for surgery, he states. >>>>>>>>>>>>>>>>>Jul good 2021:Since February 12, 2022 neurology follow-up [...] legs more likely.He has a surgeon in [place] for his back who sends him a [...] now less frequent and less intense: tolerable. Iuau-gex-srbgbqg analgesics suffice for this back pain currently [...] down without intolerable spasm. Ryan Pagan MD [address] [place] [address] [place], [address], [facility] 06/21/2024 09:01:44 12/21/2024 text/html Follow up for painful muscle spasm in lower extremities residual from back pain going down left more than right leg, with intermittent numbness and frequent spasms, all partially improved with lower back surgery September 2017. He is unaccompanied.>>>>>> >>>>>>December 21, 2024Since June 21, 2024 Neurology follow-up encounter, he is doing okay, getting back. He has had [facility] neurosurgery consultation with Dr. Lozano. Neurosurgery opinion is that degenerative abnormality is not sufficiently severe to suggest that benefit for cramps with exercise symptomatology outweighs risks of surgery. Our patient notes that this is a different opinion that he received from a [place] neurosurgeon who thought that some intervention at [...] He has consulted with Dr. Lozano at [facility] in the past and he would like to see what Dr. Lozano thinks of his MRI in relationship to his worsening symptoms. He is interested in surgery if there is a chance that surgery might relieve him of his continual cramping related to exercise that he loves.He notes previous back surgery [place] [address] [facility]. >>>>>>>>>>>>>>>>>Mar 2023Since 2023 neurology follow-up encounter, he [...] spasms more likely.He has a surgeon in [place] for his back who sends him a [...] legs more likely.He has a surgeon in [place] for his back who sends him a [...] now less frequent and less intense: tolerable. Ruay-jrm-pmwhbmb analgesics suffice for this back pain currently [...] down without intolerable spasm. Ryan Pagan MD [address] [place], [place] [address], [address], [facility] 12/21/2024 09:07:23
== END 2025-03-10 10:55 | disposition home or self-care (01) ==
LOC: HO.HUSH 10:22
PROVIDERS: Visit Provider Urology
DX: R39.12 Poor urinary stream (principal); N52.9 Male erectile dysfunction, unspecified; R35.1 Nocturia
CPT/HCPCS: 99213

== ENCOUNTER → 2025-03-10 10:22 | Outpatient (BNVA) | payer MEDICARE, SELFPAY | PROVIDERS: Visit Provider Urology | DX: N40.1 Benign prostatic hyperplasia with lower urinary tract symptoms (principal); R39.12 Poor urinary stream; R35.1 Nocturia; N52.9 Male erectile dysfunction, unspecified; Z79.899 Other long term (current) drug therapy | CPT/HCPCS: 51798; 99212 ==